=== PATIENT | female | born 1955 | race African-American/Black ===

== ENCOUNTER 2016-10-27 08:36 | Outpatient (CLI) | payer MEDICARE, MEDICAID ==
[~2016-10-27] VITALS: Ht 165.1 cm; Wt 83.6 kg
--- NOTE | ~2016-10-27 | HEMODYNAMI ---
PATIENT:ARLYN ROLLE MEDICAL RECORD: [id number] : 57 LOCATION:D.CAT ADMISSION DATE: 10/27/16 Generatedon:10/27/201611:32 Patient name: ARLYN ROLLE Patient #: [id number] SSN: : 1955 Date of study: 10/27/2016 Page: Of Hemodynamic Procedure Report Patient Data Patient Demographics Procedure consent was obtained First Name: ARLYN Gender: Female Last Name: SARIAH : 1955 [facility] Initial: REGGIE Age: 61 year(s) Patient #: [id number] Race: Black Additional ID: [id number] Contact details [address]: [address] [place] [address] State: [place] City: [place] Zip code: [address] Past Medical History Allergies Allergen Reaction Date Comments Reported Other allergy 10/27/2016 Peanuts Admission Admission Data Admission Date: 10/27/2016 Admission Time: 8:36 Lab Results Lab Result Date: 10/27/2016 Lab Result Time: 0:00 Biochemistry Name Units Result Min Max Creatinine mg/dl 6.5 --(----)-* 0.6 1.3 CBC Name Units Result Min Max Hemoglobin g/dl 10.6 *-(----)-- 13.5 17.5 Procedure Procedure Types Cath Procedure Diagnostic Procedure [facility] w/Coronaries PCI Procedure Coronary Stent Initial Miscellaneous Procedures Moderate Sedation up to 15 minutes Procedure Description Procedure Date Procedure Date: 10/27/2016 Procedure Start Time: 11:05 Procedure End Time: 11:21 Procedure Staff Name Function Deepika Mckeon RT Monitor Ian Babcock RN Nurse Taras Ashraf MD Performing Physician Miller Lincoln RT Scrub Procedure Data Cath Procedure Fluoroscopy Diagnostic fluoroscopy Total fluoroscopy Time: 2.5 time: 2.5 min min Diagnostic fluoroscopy Total fluoroscopy dose: 538 dose: 538 mGy mGy Contrast Material Contrast Material Type Amount (ml) Isovue 300 74 Entry Location Entry Primary Successful Side Size Upsize Upsize Entry Closure [place]ton ccessful Closure Location (Fr) 1 (Fr) 2 (Fr) Remarks Device Remarks Femoral Right 5 Fr 6 Fr Mechanical artery Short Compression Estimated blood loss: 10 ml Diagnostic catheters Device Type Used For End Catheter Placement Cordis 5Fr Pigtail LV Angiography Catheter (MP) Cordis 5Fr JL 4.0 Left Coronary Catheter (MP) Angiography Cordis 5Fr 3DRC Catheter (MP) Procedure Complications No complications Procedure Medications Medication Administration Route Dosage Oxygen NC 2 l/min Heparin Flush Bag added to field 2 bags (1000units/500ml NS) 0.9% NaCl I.V. 100 ml/hr Fentanyl I.V. 50 mcg Versed I.V. 1 mg Heparin Bolus I.V. 4000 units Integrilin (Bolus I.V. 7.3 ml 2mg/ml) Plavix P.O. 600 mg Hemodynamics Rest HGB: 10.6 (g/dl) Heart Rate: 53 (bpm) Snapshots Pre Cath Intra NCS Post Cath Vital Signs Time Heart Resp SPO2 NIBP (mmHg) Rhythm Pain Sedation Rate (ipm) (%) Status Level (bpm) 10:56:35 52 20 100 209/83(165) SB 0 (11) 10(A) , No pain 11:02:13 50 21 100 196/72(152) SB 0 (11) 10(A) , No pain 11:06:49 47 20 100 188/67(144) SB 0 (11) 9(A) , No pain 11:11:28 43 20 100 192/68(135) SB 0 (11) 9(A) , No pain 11:16:11 48 22 100 193/61(135) SB 0 (11) 9(A) , No pain 11:20:53 46 15 100 154/60(117) SB 0 (11) 9(A) , No pain Medications Time Medication Route Dose Verified Delivered Reason Notes Effectiveness by by 10:59:19 Oxygen NC 2 Ian Sosa Per physician l/min Sadiq Babcock RN RN 10:59:27 Heparin Flush added 2 Ian Sosa used for Bag to bags Sadiq Babcock shirt closer (1000units/500ml field RN NS) 10:59:37 0.9% NaCl I.V. 100 Ian Sosa Per physician ml/hr Sadiq Babcock RN RN 11:03:28 Fentanyl I.V. 50 Ian Sosa for sedation mcg Sadiq Babcock RN RN 11:03:40 Versed I.V. 1 mg Ian Sosa for sedation Sadiq Babcock RN RN 11:12:21 Integrilin I.V. 7.3 Ian Sosa for wasted (Bolus 2mg/ml) ml Sadiq Babcock RN antiplatelet 2.7mL of RN therapy integrilin bolus 11:12:21 Heparin Bolus I.V. 4000 Ian Sosa for units Sadiq Babcock RN anticoagulation RN 11:20:09 Plavix P.O. 600 Ian Soas for mg Sadiq Babcock RN antiplatelet RN therapy Procedure Log Time Note 10:35:17 Ian Babcock RN sent for patient. Start room use. 10:46:46 Informed consent obtained and on chart 10:47:18 Time tracking: Regular hours 10:47:22 Plan of Care:Hemodynamics will remain stable., Cardiac rhythm will remain stable., Comfort level will be maintained., Respiratory function will remain adequate., Patient/ family verbilizes understanding of procedure., Procedure tolerated without complication., Recovers from procedure without complications.. 10:48:23 Patient received from Pre/Post Procedure Room to CCL 2 Alert and oriented. Tansferred to table in Supine position. 10:48:24 Correct patient and procedure confirmed by team. 10:48:24 Warm blankets applied, and ibrahima hugger turned on for patient comfort. 10:48:26 ECG and BP/O2 sat monitors applied to patient. 10:54:13 Vital chart was started 10:54:50 Baseline sample Acquired. 10:55:45 Rhythm: sinus bradycardia 10:55:47 Full Disclosure recording started 10:55:58 H&P Date Dictated: 10/04/2016 Within 30 days and on chart., H&P Addendum completed by physician on day of procedure. (MUST COMPLETE FOR ALL OUTPATIENTS). 10:55:59 Pre-op teaching completed and patient verbalized understanding. 10:55:59 Pre-procedure instructions explained to patient. 10:56:00 Family in waiting room. 10:56:02 Patient NPO since Midnight. 10:56:27 Patient allergic to Other allergyPeanuts 10:59:19 Oxygen 2 l/min NC was administered by Ian Babcock RN; Per physician; 10:59:27 Heparin Flush Bag (1000units/500ml NS) 2 bags added to field was administered by Ian Babcock RN; used for procedure; 10:59:37 0.9% NaCl 100 ml/hr I.V. was administered by Ian Babcock RN; Per physician; 11:01:02 Is the patient allergic to Iodine/contrast media? No. 11:01:07 Is patient on blood thinner?No 11:01:08 Patient diabetic? Yes. 11:01:09 If diabetic: On Metformin? No 11:01:14 Previous problem with sedation/anesthesia? No ? 11:01:16 Snore? Yes 11:01:17 Sleep apnea? No 11:01:18 Deviated septum? No 11:01:20 Opens mouth fully? Yes 11:01:28 Sticks out tongue? No 11::35 Airway obstruction? No ? 11:01:37 Dentures? No ? 11:01:41 Pre procedure: right dorsailis pedis pulse 1+ Palpable, but thready & weak; easily obliterated 11:01:55 [place] Right Arm 11:01:58 Patient pain scale 0/10 ?. 11:02:04 IV patent on arrival in left hand with 0.9% NaCl at [facility]. 11:02:27 Lab Result : Hemoglobin 10.6 g/dl 11:02:27 Lab Result : Creatinine 6.5 mg/dl 11:02:35 Lab results completed and on chart. 11:02:37 Right groin area was prepped with chlora-prep and draped in sterile fashion 11:02:38 Alarms reviewed by R. N. 11:02:39 Sharps counted by scrub and verified by R.N. 11:02:41 Final Timeout: patient, procedure, and site verified with staff and physician. All members of the team are in agreement. 11:02:43 Right groin site verified by team. 11:02:45 Physical assessment completed. ASA score P 2 - A patient with mild systemic disease as per Taras Ashraf MD. 11:02:48 Sedation plan: IV Moderate Sedation Versed, Fentanyl 11:02:56 Use device set Femoral Dx 11:02:57 Bag Decanter opened to sterile field. 11:02:57 Acist Syringe opened to sterile field. 11:02:58 Terumo 5Fr [place] Sheath opened to sterile field. 11:02:58 Medline Cath Pack opened to sterile field. 11:02:59 St Fito 260cm J .035 wire opened to sterile field. 11:03:00 Acist Manifold opened to sterile field. 11:03:00 Acist Hand Control opened to sterile field. 11:03:01 Tegaderm 4 x 4 opened to sterile field. 11:03:01 Diagnostic Infinity 5Fr Multipack catheter opened to sterile field. 11:03:28 Fentanyl 50 mcg I.V. was administered by Ian Babcock RN; for sedation; 11:03:40 Versed 1 mg I.V. was administered by Ian Babcock RN; for sedation; 11:05:50 Procedure started. 11:05:53 Local anesthetic to right femoral artery with Lidocaine 2% by Taras Ashraf MD.INITIAL ACCESS ONLY 11:06:00 A 5 Fr sheath was inserted into the Right Femoral artery 11:06:10 Zero performed for pressure channel P1 11:06:14 Zero performed for pressure channel P1 11:06:17 Zero performed for pressure channel P1 11:06:31 A Cordis 5Fr Pigtail Catheter (MP) was advanced over the wire and used for LV Angiography. 11:07:17 LV gram done using HOANG 11:07:21 EF : 50 % 11:07:25 Injector settings: Ml/sec: 10, Volume: 20, 11:07:26 Catheter removed. 11:07:33 A Cordis 5Fr JL 4.0 Catheter (MP) was advanced over the wire and used for Left Coronary Angiography. 11:08:26 Postcron BasixCompak Inflation Kit opened to sterile field. 11:08:26 Armenta Whisper J 300cm 0.014 guide wire opened to sterile field. 11:08:27 Terumo 6Fr [place] Sheath opened to sterile field. 11:09:00 Catheter removed. 11:09:26 A Cordis 5Fr 3DRC Catheter (MP) was advanced over the wire and used for . 11:09:37 Catheter removed. 11:09:58 Medtronic Launcher 6Fr 3DRC SH guide catheter opened to sterile field. 11:10:08 Sheath upsized to a 6 Fr Short. 11:11:20 6 Fr 3DRC SH guide catheter was inserted over the wire 11:12:21 Integrilin (Bolus 2mg/ml) 7.3 ml I.V. was administered by Ian Babcock RN; for antiplatelet therapy; wasted 2.7mL of integrilin bolus 11:12:21 Heparin Bolus 4000 units I.V. was administered by Ian Babcock RN; for anticoagulation; 11:12:36 Whisper wire advanced. 11:13:35 Inflation Number: 1 A Medtronic Resolute 3.5 X 12 stent was prepped and advanced across the Prox RCA. The stent was deployed at 24 LAURA for 0:18 (min:sec). 11:14:12 Inflation number: 2 The stent balloon was then re-inflated across the Prox RCA to 23 LAURA for 0:11 (min:sec). 11:14:36 Wire removed. 11:14:36 Stent catheter was removed intact over wire. 11:14:37 Guide catheter removed. 11:14:46 Sheath removed intact; hemostasis achieved with Mechanical Compression to the Right Femoral artery. 11:14:48 Procedure ended.(Physican Out) 11:17:03 Cordis 6Fr Exoseal opened to sterile field. 11:17:09 Fluoroscopy time 02.50 minutes. 11:17:13 Fluoroscopy dose: 538 mGy 11:17:13 Flurop Dose total: 538 11:18:32 Contrast amount:Isovue 300 74ml. 11:18:34 Sharps counted by scrub and verified by R.N. 11:19:28 Insertion/operative site no bleeding no hematoma. 11:19:32 Post-op/insertion site Right Femoral artery dressed using a 4 x 4 and Tegaderm. 11:19:35 Post right femoral artery:stable, clean and dry 11:19:37 Post Procedure Pulses reassessed and unchanged 11:19:40 Post-procedure physical assessment completed. ASA score P 2 - A patient with mild systemic disease as per Taras Ashraf MD. 11:19:42 Post procedure rhythm: unchanged. 11:19:43 Estimated blood loss: 10 ml 11:19:45 Patient needs reinforcement of post procedure teaching. 11:19:45 Post procedure instruction explained to patient.Patient verbalizes understanding. 11:19:59 Procedure type changed to Cath procedure, Diagnostic procedure, LHC, LHC w/Coronaries, PCI procedure, Coronary Stent Initial, Miscellaneous Procedures, Moderate Sedation up to 15 minutes 11:20:05 Procedure Complication : No complications 11:20:07 See physician's report for complete and final results. 11:20:09 Plavix 600 mg P.O. was administered by Ian Babcock RN; for antiplatelet therapy; 11:20:11 Post right femoral artery:bleeding 11:20:16 Femstop placed over the right femoral artery at 170 mmHg. Hemostasis achieved. 11:20:56 Procedure and supply charges have been captured, reviewed, submitted and are correct. 11:20:58 Vital chart was stopped 11:21:02 Report given to Pre/Post Procedure Room. 11:21:08 Patient transfered to Pre/Post Procedure Room with Stretcher. 11:21:10 Procedure ended. 11:21:10 Full Disclosure recording stopped 11:21:23 End room use (Document Last) 11:32:21 Late entry revised: RFA bleeding, Femstop placed RFA @170mmHG. ScountsRT(R) Intervention Summary Intervention Notes Time ActionType Lesion and Equipment Action# Pressure Duration Attributes Used 11:13:35 Place stent Prox RCA Medtronic 1 24 00:18 Resolute 3.5 X 12 stent 11:14:12 Reinflate Prox RCA Medtronic 2 23 00:11 stent Resolute balloon 3.5 X 12 stent Device Usage Item Name Manufacture Quantity Catalog Hospital Part Current Minimal Lot# / Number Charge Number Stock Stock Serial# Code Acist Acist 1 [id number] [id number] 386264 562603 20 Syringe [employer] Inc Bag Microtek 1 2002S 734255 07373 436452 5 [employer] Medline Cardinal 1 [id number] 621587 96346 880057 5 Cath Pack Health Terumo 5Fr Terumo 1 [id number] 029315 418384 387259 [address] [place] [address] F[address] St Fito 1 699076 422785 870950 663694 30 260cm J .035 wire Acist Hand Acist 1 11788 683542 195425 253584 5 Control [employer] Inc Acist Acist 1 41899 800297 828995 691937 5 TIMPIK [employer] Diagnostic Cardinal 1 [id number] 332956 98616 396693 30 Infinity Health 5Fr Multipack catheter Tegaderm 4 3M 1 1626W 113677 565294 020833 5 x 4 Cordis 5Fr Cardinal 1 [id number] 5 Pigtail Health Catheter (MP) Cordis 5Fr Cardinal 1 149659 5 JL 4.0 Health Catheter (MP) Armenta Armenta 1 [id number] 772851 397612 191280 5 Whisper J Vascular 300cm 0.014 guide wire [facility] 1 [id number] 503711 859185 767875 15 [employer] Medical Inflation Kit Terumo 6Fr Terumo 1 [id number] 108520 282877 144975 40 [place] Sheath Cordis 5Fr Cardinal 1 566126 5 3D Health Catheter (MP) Medtronic Medtronic 1 [id number] 831280 265480 320993 1 Launcher 6Fr 3DRC guide catheter Medtronic Medtronic 1 [id number] 277433 990452 7 [id number] Resolute 3.5 X 12 stent Cordis 6Fr Cardinal 1 EX600 656572 157839 543082 [address] [facility] Signature Audit [place] Stage Time Signature Unsigned Intra-Procedure 10/27/2016 Deepika Poe Counts 11:21:46 AM Counts RT(R) RT(R) 10/27/2016 11:29:45 AM Intra-Procedure 10/27/2016 Deepika 11:32:48 AM Counts RT(R) Signatures Monitor : Deepika Signature : Counts RT Date : Time : [address] [address]
[~2016-10-27 08:36] MED LIST: ASPIRIN325 MG PO; BACTROBAN NASAL1 GM NS; CLARITIN 10 MG10 MG GT; ISOSORBIDE DINI20 MG PO; MUCINEX600 MG PO; NITROSTAT0.4 MG SL; NORCO 5/325 TAB1 TA1 PO; NORVASC10 MG PO; PHENERGAN25 MG RC; PHOSLO667 MG PO; RENAGEL800 MG PO; SALINE FLUSH10 ML IV; TESSALON PERLE100 MG PO; TRANDATE300 MG PO; ZOCOR20 MG PO
[2016-10-27] MEDS ORDERED: LISINOPRIL10 MG PO (09:24)
[2016-10-27] MEDS ORDERED: ISOSORBIDE MONO20 MG PO (09:26)
[2016-10-27] MEDS ORDERED: SENSIPAR30 MG PO (09:30)
[2016-10-27] MEDS ORDERED: ASPIRIN325 MG PO (09:30)
[2016-10-27 09:33] VITALS: BP 195/54; Ht 165.1 cm; Wt 83.6 kg
[2016-10-27 09:48] LABS: BASOPHILS 0.2 % (0.0-2.0); HEMATOCRIT 33.9 % (36.0-48.0); HEMOGLOBIN 10.6 g/dL (12-16); IMMATURE GRANULOCYTES 0.2 % (0-5); LYMPHOCYTES 22.4 % (15-50); MCH 30.1 pg (26.0-34.0); MCHC 31.3 g/dL (31.0-37.0); MCV 96.3 fL (80.0-100.0); MEAN PLATELET VOLUME 12.2 fL (7.4-10.4); MONOCYTES 7.2 % (2-11); RBC 3.52 10x6/uL (4.00-5.40); RDW 16.6 % (11.5-14.5); WBC 5.5 10x3/uL (4.8-10.8)
[2016-10-27 09:52] LABS: PLATELET COUNT 107 10x3/uL (130-400)
[2016-10-27 09:59] LABS: ANION GAP 13.7 mmol/L (8-16); CALCIUM 8.3 mg/dL (8.5-10.1); CARBON DIOXIDE 24.7 mmol/L (21.0-32.0); CREATININE - SERUM 6.5 mg/dL (0.6-1.3); POTASSIUM - SERUM 3.4 mmol/L (3.5-5.1)
[2016-10-27] MEDS ORDERED: PLAVIX75 MG PO (11:30)
--- NOTE | 2016-10-27 11:46 | NUR ---
HR 44 BP 183/64 CHEST PAIN DENIED. 6 FR EXOSEAL R/GROIN WITH FEMSTOP IN PLACE INFLATED TO 169 NO BLEEDING NO HEMATOMA NOTED. WILL MONITOR
--- NOTE | 2016-10-27 12:00 | NUR ---
1200 PATIENT NAUSEATED AND VOMITING CLEAR BILE. ORDERS RECIEVED WITH ZOFRAN 4 MG GIVEN IV. FEMSTOP REMAINS IN PLACE WITH NO BLEEDING NO HEMATOMA NOTED.
--- NOTE | 2016-10-27 12:30 | NUR ---
NAUSEA DENIED AT THIS TIME. FEMSTOP REMAINS TO R/GROIN CDI NO BLEEDING NO HEMATOMA NOTED. VSS
--- NOTE | 2016-10-27 14:02 | NUR ---
FEMSTOP REMOVED WITH NO BLEEDING NOTED. CHEST PAIN IS DENIED. SANWICH AND SODA AT BEDSIDE NAUSEA DENIED.VSS
--- NOTE | 2016-10-27 14:30 | NUR ---
1430 BLEEDING NOTED TO R/GROIN FEMSTOP STILL IN PLACE WITH NO PRESSURE. GAUZE IS SATURATED. NOTIFIED RASHEED WITH FEMSTOP REAPPLIED. PRESSURE AT 105 WILL MONITOR VSS
--- NOTE | 2016-10-27 15:04 | NUR ---
FEMSTOP REMAINS IN PLACE WITH NO ACTIVE BLEEDING OR HEMATOMA AT THIS TIME WILL MONITOR
--- NOTE | 2016-10-27 15:20 | NUR ---
RASHEED AT BEDSIDE WITH FEMSTOP REMOVED NO BLEEDING AT SITE NO HEMATOMA WILL MONITOR
--- NOTE | 2016-10-27 15:59 | NUR ---
R/GROIN REMAINS CDI NO BLEEDING NO HEMATOMA NOTED. VSS WITH CHEST PAIN DENIED
--- NOTE | 2016-10-27 16:53 | NUR ---
PIV REMOVED FROM LEFT ARM WITH DRESSING APPLIED R/GROIN REMAINS CDI NO BLEEDING NO HEMATOMA NOTED. PATIENT DENIED CHEST PAIN UP TO GET DRESSED FOR DISCHARGE HOME
--- NOTE | 2016-10-27 17:03 | NUR ---
VERBAL AND WRITTEN DISCHARGE GONE OVER WITH FAMILY AND PATIENT R/GROIN CDI NO BLEEDING NO HEMATOMA NOTED CHEST PAIN IS DENIED. LEFT VIA WC TO PARKING FOR FAMILY TRANSPORT HOME
--- NOTE | 2016-11-05 10:19 | OP ---
PATIENT NAME: ARLYN ROLLE MEDICAL RECORD: [id number] :57 LOCATION:D.CAT ADMISSION DATE: SURGEON: GARRY BASS MD DATE OF OPERATION: 10/27/2016 PROCEDURES: 1. PTCA stent, RCA. 2. Left heart catheterization. 3. Selective coronary angiography. 4. Left ventriculogram. INDICATIONS: Angina and coronary artery disease. PROCEDURE IN DETAIL: After informed consent was obtained and after a detailed explanation of the risks, benefits as well as alternative therapies, the patient elected to proceed with angiogram and angioplasty. The right femoral area is prepped and draped in normal sterile fashion. The right femoral artery was cannulated via modified Seldinger technique with placement of 6-Malay sheath. All catheters exchanged through this sheath. FINDINGS: The left ventriculogram was performed in standard 30-degree HOANG view, reveals good cardiac wall motion throughout all segments. Overall ejection fraction estimated 60%. SELECTIVE CORONARY ANGIOGRAPHY: 1. Left main showed no significant angiographic disease. 2. Left anterior descending has previously placed stents. There is 80% in-stent restenosis in the mid vessel. 3. Left circumflex shows moderate irregularities, but no flow-limiting stenosis. 4. Right coronary has ostial damping with stenosis greater than 80%. PTCA STENT OF THE RCA: The stent used is a 3.5 x 12 mm Resolute taken to 23 atmospheres. Result was 0% residual stenosis. OVERALL IMPRESSION: Successful percutaneous transluminal coronary angioplasty stent of the right coronary artery going from greater than 80% initial stenosis to 0% residual. PLAN: PTCA stent of the LAD in the near future. TRANSINT:[id number] Voice Confirmation ID: [id number] DOCUMENT ID: [id number] GARRY BASS MD at 1019 CC: [id number] DICTATION DATE: 10/27/16 1120 MEDICAL DEVICE ENGINEER: 10/27/16 1209 DEP CLI 10/27/[address] [address]
== END 2016-10-27 17:14 | disposition home or self-care (01) ==
LOC: D.CATH 08:36
PROVIDERS: Internal Medicine Interventional Cardiology
DX: I25.119 Atherosclerotic heart disease of native coronary artery with unspecified angina pectoris (principal)
CPT/HCPCS: 93458; C9600

== ENCOUNTER 2016-11-03 08:52 | Outpatient (CLI) | payer MEDICARE, MEDICAID ==
[~2016-11-03] VITALS: Ht 165.1 cm; Wt 85.0 kg
--- NOTE | ~2016-11-03 | HEMODYNAMI ---
PATIENT:ARLYN ROLLE MEDICAL RECORD: [id number] : 57 LOCATION:D.CAT ADMISSION DATE: 11/03/16 Generatedon:11/03/201611:11 Patient name: ARLYN ROLLE Patient #: [id number] SSN: : 1955 Date of study: 11/03/2016 Page: Of Hemodynamic Procedure Report Patient Data Patient Demographics Procedure consent was obtained First Name: ARLYN Gender: Female Last Name: SARIAH : 1955 [facility] Initial: REGGIE Age: 61 year(s) Patient #: [id number] Race: Black Additional ID: [id number] Contact details [address]: [address] [place] [address] State: [place] City: [place] Zip code: [address] Past Medical History Allergies Allergen Reaction Date Comments Reported Other allergy 10/27/2016 Peanuts Admission Admission Data Admission Date: 11/03/2016 Admission Time: 8:52 Lab Results Lab Result Date: 11/03/2016 Lab Result Time: 0:00 Biochemistry Name Units Result Min Max Creatinine mg/dl 7.6 --(----)-* 0.6 1.3 CBC Name Units Result Min Max Hemoglobin g/dl 11.4 *-(----)-- 13.5 17.5 Procedure Procedure Types Cath Procedure Diagnostic Procedure [facility] w/Coronaries PCI Procedure Coronary Stent Initial Miscellaneous Procedures Moderate Sedation up to 15 minutes Procedure Description Procedure Date Procedure Date: 11/03/2016 Procedure Start Time: 10:59 Procedure End Time: 11:10 Procedure Staff Name Function Taras Ashraf MD Performing Physician Miller Lincoln RT Scrub Ian Babcock RN Nurse Deepika Mckeon RT Monitor Procedure Data Cath Procedure Fluoroscopy Diagnostic fluoroscopy Total fluoroscopy Time: 1.2 time: 1.2 min min Diagnostic fluoroscopy Total fluoroscopy dose: dose: 76.42 mGy 76.42 mGy Contrast Material Contrast Material Type Amount (ml) Isovue 300 37 Entry Location Entry Primary Successful Side Size Upsize Upsize Entry Closure Succes sful Closure Location (Fr) 1 (Fr) 2 (Fr) Remarks Device Remarks Femoral Left 6 Fr Exoseal artery Short Estimated blood loss: 10 ml Procedure Complications No complications Procedure Medications Medication Administration Route Dosage Oxygen NC 2 l/min Heparin Flush Bag added to field 2 bags (1000units/500ml NS) 0.9% NaCl I.V. 100 ml/hr Fentanyl I.V. 50 mcg Versed I.V. 1 mg Heparin Bolus I.V. 4000 units Hemodynamics Rest HGB: 11.4 (g/dl) Heart Rate: 71 (bpm) Snapshots Pre Cath Intra NCS Post Cath Vital Signs Time Heart Resp SPO2 NIBP (mmHg) Rhythm Pain Sedation Rate (ipm) (%) Status Level (bpm) 10:48:42 60 21 95 205/83(139) NSR 0 (11) 10(A) , No pain 10:53:25 55 19 96 187/72(146) NSR 0 (11) 10(A) , No pain 10:58:06 53 19 95 190/71(144) NSR 0 (11) 10(A) , No pain 11:03:49 49 17 97 186/72(134) NSR 0 (11) 9(A) , No pain 11:09:32 49 17 98 171/66(133) NSR 0 (11) 9(A) , No pain Medications Time Medication Route Dose Verified Delivered Reason Notes Effectiveness by by 10:48:27 Oxygen NC 2 Ian Ian Per physician l/min Sadiq Babcock RN RN 10:48:37 Heparin Flush added 2 Ian Sosa used for Bag to bags Sadiq Babcock RN procedure (1000units/500ml field RN NS) 10:48:49 0.9% NaCl I.V. 100 Ian Ian Per physician ml/hr Sadiq Babcock RN RN 10:58:09 Fentanyl I.V. 50 Ian Ian for sedation mcg Sadiq Babcock RN RN 10:58:17 Versed I.V. 1 mg Ian Ian for sedation Sadiq Babcock RN RN 11:00:45 Heparin Bolus I.V. 4000 Ian Beardy for units Sadiq Babcock RN anticoagulation beauty director Log Time Note 10:20:33 Ian Babcock RN sent for patient. Start room use. 10:32:34 Time tracking: Regular hours 10:32:38 Plan of Care:Hemodynamics will remain stable., Cardiac rhythm will remain stable., Comfort level will be maintained., Respiratory function will remain adequate., Patient/ family verbilizes understanding of procedure., Procedure tolerated without complication., Recovers from procedure without complications.. 10:36:34 Patient received from Pre/Post Procedure Room to [facility] 3 Alert and oriented. Tansferred to table in Supine position. 10:36:35 Warm blankets applied, and ibrahima hugger turned on for patient comfort. 10:36:36 Correct patient and procedure confirmed by team. 10:36:37 Signed procedure consent form obtained from patient. 10:36:37 ECG and BP/O2 sat monitors applied to patient. 10:36:38 Full Disclosure recording started 10:43:11 Vital chart was started 10:46:02 Baseline sample Acquired. 10:46:04 Rhythm: sinus rhythm 10:46:09 H&P Date Dictated: 11/03/2016 New H&P dictated by physician.. 10:46:10 Pre-procedure instructions explained to patient. 10:46:10 Pre-op teaching completed and patient verbalized understanding. 10:46:11 Family in waiting room. 10:46:13 Patient NPO since Midnight. 10:46:19 Is the patient allergic to Iodine/contrast media? No. 10:46:21 Is patient on blood thinner?Yes 10:46:23 ACC The patient was administered the following blood thiners within the last 24 hours: ACCPlavix 10:46:56 Vital chart was stopped 10:46:57 Vital chart was started 10:47:49 Patient diabetic? Yes. 10:47:50 If diabetic: On Metformin? No 10:47:55 Previous problem with sedation/anesthesia? No ? 10:47:56 Snore? Yes 10:47:57 Sleep apnea? No 10:47:58 Deviated septum? No 10:47:59 Opens mouth fully? Yes 10:47:59 Sticks out tongue? Yes 10:48:01 Airway obstruction? No ? 10:48:03 Dentures? No ? 10:48:16 Pre procedure: right dorsailis pedis pulse 0-Absent 10:48:27 Oxygen 2 l/min NC was administered by Ian Babcock RN; Per physician; 10:48:35 AKA On Left. 10:48:37 Heparin Flush Bag (1000units/500ml NS) 2 bags added to field was administered by Ian Babcock RN; used for procedure; 10:48:42 Patient pain scale 0/10 ?. 10:48:49 0.9% NaCl 100 ml/hr I.V. was administered by Ian Babcock RN; Per physician; 10:48:52 IV patent on arrival in left antecubital with 0.9% NaCl at [facility]. 10:49:13 Lab Result : Creatinine 7.6 mg/dl 10:49:13 Lab Result : Hemoglobin 11.4 g/dl 10:49:17 Lab results completed and on chart. 10:49:20 Left groin area was prepped with chlora-prep and draped in sterile fashion 10:49:21 Alarms reviewed by R. N. 10:49:21 Sharps counted by scrub and verified by R.N. 10:49:24 Use device set Femoral PCI 10:49:25 Acist Syringe opened to sterile field. 10:49:26 Acist Hand Control opened to sterile field. 10:49:26 Bag Decanter opened to sterile field. 10:49:27 Medline Cath Pack opened to sterile field. 10:49:27 Terumo 6Fr Duson Sheath opened to sterile field. 10:49:28 St Fito 260cm J .035 wire opened to sterile field. 10:49:28 Merit BasixCompak Inflation Kit opened to sterile field. 10:49:29 Acist Manifold opened to sterile field. 10:49:29 Tegaderm 4 x 4 opened to sterile field. 10:49:43 Armenta Whisper J 300cm 0.014 guide wire opened to sterile field. 10:53:54 Physician paged 10:54:06 Baseline sample Acquired. 10:57:09 Final Timeout: patient, procedure, and site verified with staff and physician. All members of the team are in agreement. 10:57:11 Left groin site verified by team. 10:57:14 Physical assessment completed. ASA score P 2 - A patient with mild systemic disease as per Taras Ashraf MD. 10:57:17 Sedation plan: IV Moderate Sedation Versed, Fentanyl 10:58:09 Fentanyl 50 mcg I.V. was administered by Ian Babcock RN; for sedation; 10:58:17 Versed 1 mg I.V. was administered by Ian Babcock RN; for sedation; 10:58:36 Zero performed for pressure channel P1 10:59:29 Procedure started. 10:59:33 Local anesthetic to left femerol artery with Lidocaine 2% by Taras Ashraf MD.INITIAL ACCESS ONLY 11:00:23 A 6 Fr Short sheath was inserted into the Left Femoral artery 11:00:30 6 Fr XBLAD 3.5 guide catheter was inserted over the wire 11:00:45 Heparin Bolus 4000 units I.V. was administered by Ian Babcock RN; for anticoagulation; 11:02:26 Whisper wire advanced. 11:04:34 Inflation Number: 1 A Medtronic Resolute 3.5 X 26 stent was prepped and advanced across the Prox LAD. The stent was deployed at 21 LAURA for 0:14 (min:sec). 11:04:46 Stent catheter was removed intact over wire. 11:04:47 Wire removed. 11:04:47 Guide catheter removed. 11:04:54 Sheath removed intact; hemostasis achieved with Exoseal to the Left Femoral artery. 11:05:00 Procedure ended.(Physican Out) 11:05:11 Fluoroscopy time 01.20 minutes. 11:05:18 Flurop Dose total: 76.42 11:05:18 Fluoroscopy dose: 76.42 mGy 11:05:22 Contrast amount:Isovue 300 37ml. 11:05:23 Sharps counted by scrub and verified by R.N. 11:05:24 Insertion/operative site no bleeding no hematoma. 11:05:26 Post-op/insertion site Left Femoral artery dressed using a 4 x 4 and Tegaderm. 11:05:31 Post left femerol artery:stable, clean and dry 11:05:33 Post Procedure Pulses reassessed and unchanged 11:05:35 Post-procedure physical assessment completed. ASA score P 2 - A patient with mild systemic disease as per Taras Ashraf MD. 11:05:43 Post procedure rhythm: unchanged. 11:05:45 Estimated blood loss: 10 ml 11:05:46 Post procedure instruction explained to patient.Patient verbalizes understanding. 11:05:47 Patient needs reinforcement of post procedure teaching. 11:05:56 Procedure type changed to Cath procedure, Diagnostic procedure, LHC, LHC w/Coronaries, PCI procedure, Coronary Stent Initial, Miscellaneous Procedures, Moderate Sedation up to 15 minutes 11:06:02 Procedure Complication : No complications 11:06:20 Cordis 6Fr Exoseal opened to sterile field. 11:06:42 Cordis 6FR XBLAD 3.5 guide catheter opened to sterile field. 11:07:08 Procedure and supply charges have been captured, reviewed, submitted and are correct. 11:07:09 See physician's report for complete and final results. 11:10:40 Report given to Pre/Post Procedure Room. 11:10:43 Patient transfered to Pre/Post Procedure Room with Stretcher. 11:10:50 Procedure ended. 11:10:50 Full Disclosure recording stopped 11:10:56 End room use (Document Last) 11:11:26 Vital chart was stopped Intervention Summary Intervention Notes Time ActionType Lesion and Equipment Action# Pressure Duration Attributes Used 11:04:34 Place stent Prox LAD Medtronic 1 21 00:15 Resolute 3.5 X 26 stent Device Usage Item Name Manufacture Quantity Catalog Hospital Part Current Minimal Lot# / Number Charge Number Stock Stock Serial# Code Acist Acist 1 95060 032545 501002 453290 20 Syringe Medical Systems Inc Acist Hand Acist 1 71097 951155 213597 746522 5 Control Medical Systems Inc Bag Microtek 1 2002S 183663 50590 064707 5 DecMatchbin Medical Inc. Medline Cardinal 1 [id number] 572286 93126 754272 5 Frograms Terumo 6Fr Terumo 1 [id number] 668262 837218 359662 [address] Fito 1 296753 425144 391276 820345 30 260cm J .035 wire Merit Merit 1 [id number] 251290 995311 989429 15 BasixCompak Medical Inflation Kit Acist Acist 1 48318 858928 066504 695923 5 Manifold Medical Systems Inc Tegaderm 4 3M 1 1626W 899730 091353 804476 5 x 4 Armenta Armenta 1 [id number] 682758 362417 075859 5 Whisper J Vascular 300cm 0.014 guide wire Medtronic Medtronic 1 [id number] 344510 689462 2 [id number] Resolute 3.5 X 26 stent Cordis 6Fr Cardinal 1 EX600 012695 270446 299397 10 Exoseal Health Cordis 6FR Cardinal 1 [id number] 814833 555500 930797 10 XBLAD 3.5 Health guide catheter Signature Audit [place] Stage Time Signature Unsigned Intra-Procedure 11/03/2016 Deepika 11:11:23 AM Counts RT(R) Signatures Monitor : Deepika Signature : Counts RT Date : Time : [place] [address] [place] [address]
[~2016-11-03 08:52] MED LIST changes: +ISOSORBIDE MONO20 MG PO; +LISINOPRIL10 MG PO; +PLAVIX75 MG PO; +SENSIPAR30 MG PO
[2016-11-03 09:07] VITALS: BP 188/59; Ht 165.1 cm; Wt 85.0 kg
[2016-11-03 09:49] LABS: BASOPHILS 0.3 % (0.0-2.0); EOSINOPHILS 3.4 % (0-7); HEMATOCRIT 35.3 % (36.0-48.0); HEMOGLOBIN 11.4 g/dL (12-16); IMMATURE GRANULOCYTES 0.1 % (0-5); MCHC 32.3 g/dL (31.0-37.0); MCV 95.9 fL (80.0-100.0); MEAN PLATELET VOLUME 12.6 fL (7.4-10.4); MONOCYTES 8.5 % (2-11); NEUTROPHILS 65.7 % (40-80); PLATELET COUNT 121 10x3/uL (130-400); RBC 3.68 10x6/uL (4.00-5.40); RDW 16.2 % (11.5-14.5); WBC 6.7 10x3/uL (4.8-10.8)
[2016-11-03 10:11] LABS: ANION GAP 13.2 mmol/L (8-16); CALCIUM 9.9 mg/dL (8.5-10.1); CARBON DIOXIDE 30.2 mmol/L (21.0-32.0); CREATININE - SERUM 7.6 mg/dL (0.6-1.3); POTASSIUM - SERUM 4.4 mmol/L (3.5-5.1)
--- NOTE | 2016-11-03 11:40 | NUR ---
RESTING IN BED QUIETLY. 2L NC, NO RESP DISTRESS NOTED. VSS. NO C/O CHEST PAIN OR NAUSEA. LEFT GROIN EXOSEAL CDI, NO BLEEDING OR HEMATOMA NOTED. INSTRUCTED PT TO KEEP HEAD FLAT ON PILLOW AND LEFT LEG STRAIGHT.
--- NOTE | 2016-11-03 12:09 | NUR ---
LEFT GROIN EXOSEAL CDI, NO BLEEDING OR HEMATOMA NOTED. 2L NC, NO RESP DISTRESS NOTED. VSS. NO C/O CHEST PAIN OR NAUSEA. CALL LIGHT WITHIN REACH.
--- NOTE | 2016-11-03 12:26 | NUR ---
1225 PT RESTING WITH EYES CLOSED, AWAKENS TO VERBAL STIMULI. DENIES ANY C/O CHEST PAIN OR NAUSEA. RR IS EVEN AND UNLABORED ON O2 AT 2 LPM VIA NC. DRESSING TO LEFT GROIN IS CDI, NO BLEEDING OR HEMATOMA NOTED. CALL LIGHT IN REACH. WILL CONTINUE TO MONITOR.
--- NOTE | 2016-11-03 12:55 | NUR ---
JUICE AND SANDWICH TRAY GIVEN. NO C/O NAUSEA. VSS. LEFT GROIN EXOSEAL CDI, NO BLEEDING OR HEMATOMA NOTED. CALL LIGHT WITHIN REACH.
--- NOTE | 2016-11-03 13:55 | NUR ---
QUIETLY RESTING. 2L NC, NO RESP DISTRES NOTED. VSS. LEFT GROIN EXOSEAL CDI, NO BLEEDING OR HEMATOMA NOTED. WILL CONTINUE TO MONITOR.
--- NOTE | 2016-11-03 14:42 | NUR ---
HOB ELEVATED 30 DEGREES. LEFT GROIN CDI.
--- NOTE | 2016-11-03 14:55 | NUR ---
LEFT AC PIV D/C'D WITH CATHETER INTACT, BAND AID TO SITE. UP TO BEDSIDE TO GET DRESSED.
--- NOTE | 2016-11-03 15:07 | NUR ---
UP TO RESTROOM TO VOID.
--- NOTE | 2016-11-03 15:16 | NUR ---
DISCHARGE INSTRUCTIONS GIVEN, VERBALIZED UNDERSTANDING. TAKEN OUT VIA WHEELCHAIR BY CATH SHAREPOINT CONSULTANT. LEFT FACILITY WITH FAMILY MEMBER AND ALL PERSONAL BELONGINGS.
--- NOTE | 2016-11-05 10:19 | OP ---
PATIENT NAME: ARLYN ROLLE MEDICAL RECORD: [id number] :57 LOCATION:D.CAT ADMISSION DATE: SURGEON: GARRY BASS MD DATE OF OPERATION: 11/03/2016 PROCEDURES: 1. PTCA stent, LAD. 2. Selective coronary angiography. INDICATIONS: Angina and coronary artery disease. PROCEDURE IN DETAIL: After informed consent was obtained and after detailed explanation of risks, benefits as well as alternative therapies, the patient elected to proceed with angiogram and angioplasty. The right femoral area was prepped and draped in normal sterile fashion. The right femoral artery was cannulated via modified Seldinger technique with placement of 6-Slovak sheath. All catheters exchanged through this sheath. FINDINGS: The left anterior descending has 70%-75% stenosis in the mid vessel. This was addressed with a 3.0 x 26 mm Resolute stent. Result was 0% residual stenosis. OVERALL IMPRESSION: Successful percutaneous transluminal coronary angioplasty stent of the LAD going from 70%-75% initial stenosis to 0% residual. TRANSINT:[id number] Voice Confirmation ID: [id number] DOCUMENT ID: [id number] GARRY BASS MD at 1019 CC: [id number] DICTATION DATE: 11/03/16 1110 OPTICIAN: 11/03/16 1818 [facility] CLI 11/03/16 [place] [id number] [place] [address]
--- NOTE | 2016-11-05 10:19 | HP ---
PATIENT: ARLYN BATEMAN MEDICAL RECORD: [id number] ACCOUNT: [id number] LOCATION:RENEA : 57 ADMISSION DATE: 11/03/16 HISTORY AND PHYSICAL EXAMINATION DIAGNOSES: 1. Angina. 2. Coronary artery disease. 3. Recent percutaneous transluminal coronary angioplasty stent of the right coronary artery with concomitant disease of the left anterior descending. 4. Hypertension. 5. Hyperlipidemia. HISTORY OF PRESENT ILLNESS: Mrs. Bateman presents with unstable angina, found to have 2-vessel coronary artery disease of the LAD and RCA, underwent successful PTCA stent of the ostial RCA. She is now brought back for PTCA stent of the LAD in a staged fashion. PHYSICAL EXAMINATION: GENERAL APPEARANCE: Well-nourished, well-developed, appears stated age. Level of distress, comfortable. PSYCHIATRIC: Mental status, alert, normal affect. Orientation, oriented to time, place and person. EYES: Lids and conjunctiva, noninjected. No discharge, no pallor. ENT: Lips, teeth, gums, normal dentition. Oropharynx, no cyanosis, no pallor. NECK: Carotid arteries, bilateral normal upstroke, no bruits, no thrills. JUGULAR VEINS: No jugular venous pressure or distention. CERVICAL LYMPH NODES: Nontender, nonenlarged. THYROID: Not enlarged. Nontender. No nodules. LUNGS: Respiratory effort, unlabored. CHEST: Normal curvature. No thoracic deformity. No chest wall tenderness. Percussion, resonant. Auscultation, clear. No wheezes, no rales, no rhonchi. CARDIOVASCULAR: Precordial exam, nondisplaced. No heaves or pericardial thrills. Rate and rhythm, regular. Heart sounds, normal S1, normal S2. No S3, no gallop, no rub. Systolic murmur, not heard. Diastolic murmur, not heard. EXTREMITIES: No cyanosis, no edema. Peripheral pulses, full and equal in all extremities, except as noted. No bruits appreciated. ABDOMEN: Soft, nondistended. Normal aorta. No bruit. Nontender. No masses. Liver, nontender, no hepatomegaly. Spleen, nontender, no splenomegaly. MUSCULOSKELETAL: No joint tenderness. No joint swelling. No erythema. NEUROLOGICAL: Normal gait, normal strength, normal tone. SKIN: Warm and dry. REVIEW OF SYSTEMS: The patient reports easy bruising but reports no swollen glands. The patient reports no fever, no night sweats, no significant weight gain, no significant weight loss. No significant exercise tolerance. The patient reports no dry eyes, no irritation, no vision change. Patient reports no difficulty hearing and no ear pain. Patient reports no frequent nose bleeds or nose and sinus problems. Patient reports on arm pain on exertion. No shortness of breath while lying down. No history of heart murmur. Patient reports no cough, no wheezing or coughing up blood. Patient reports no abdominal pain, no vomiting. Normal appetite. No diarrhea and not vomiting blood. No nausea and no constipation. Patient reports no incontinence. No difficulty urinating. No hematuria. No increased frequency. Patient reports no muscle aches. No weakness, no arthralgias, no back pain. No swelling of the HISTORY AND PHYSICAL [id number] ARLYN BATEMAN extremities. Patient reports no abnormal mole, no jaundice, no rashes. Reports no loss of consciousness. No weakness and no numbness. No seizures, dizziness, or headaches. The patient reports no depression, no sleep disturbance, feeling safe in a relationship and no alcohol abuse. Patient reports on fatigue. Reports no runny nose or sinus pressure. No itching, no hives, and no frequent sneezing. OVERALL IMPRESSION: Anginal symptomatology with significant disease of the left anterior descending. We will proceed with percutaneous transluminal coronary angioplasty stent of the left anterior descending. TRANSINT:[id number] Voice Confirmation ID: [id number] DOCUMENT ID: [id number] GARRY BASS MD at 1019 CC: [id number] DICTATION DATE: 11/03/16923 PARISH VISITOR: 11/03/16 1236 [facility] CLI 11/03/16 [id number] [place] [id number]
== END 2016-11-03 15:16 | disposition home or self-care (01) ==
LOC: D.CATH 08:52
PROVIDERS: Internal Medicine Interventional Cardiology
DX: I25.119 Atherosclerotic heart disease of native coronary artery with unspecified angina pectoris (principal); Z95.5 Presence of coronary angioplasty implant and graft; I10 Essential (primary) hypertension; E78.5 Hyperlipidemia, unspecified

== ENCOUNTER 2018-09-06 09:16 | Outpatient (CLI) | payer MEDICARE, MEDICAID ==
[~2018-09-06] VITALS: Ht 165.1 cm; Wt 81.8 kg
--- NOTE | ~2018-09-06 | HEMODYNAMI ---
PATIENT:ARLYN ROLLE MEDICAL RECORD: [id number] : 57 LOCATION:D.CAT ADMISSION DATE: 09/06/18 Generatedon:09/06/201812:30 Patient name: ARLYN ROLLE Patient #: [id number] SSN: : 1955 Date of study: 09/06/2018 Page: Of Hemodynamic Procedure Report Patient Data Patient Demographics Procedure consent was obtained First Name: ARLYN Gender: Female Last Name: SARIAH : 1955 Middle Initial: REGGIE Age: 63 year(s) Patient #: [id number] Race: Black Additional ID: [id number] Contact details Address: [address] [place] [address] State: [place] City: [place] Zip code: [address] Past Medical History Allergies Allergen Reaction Date Comments Reported Other allergy 10/27/2016 Peanuts Admission Admission Data Admission Date: 09/06/2018 Admission Time: 9:16 Procedure Procedure Types Cath Procedure Diagnostic Procedure LHC LHC w/Coronaries PCI Procedure Coronary Stent Coronary Stent Initial Peripheral Cath Diagnostic Procedure Breakfast And Room Attendant Peripheral Procedures Rtwat-Vnwmqqb-Kky-Off Procedure Description Procedure Date Procedure Date: 09/06/2018 Procedure Start Time: 11:58 Procedure End Time: 12:26 Procedure Staff Name Function Taras Ashraf MD Performing Physician Sherif Valles RT Monitor Denise Nieves RT Scrub Ian Babcock RN Nurse Procedure Data Cath Procedure Fluoroscopy Diagnostic fluoroscopy Total fluoroscopy Time: 7.5 time: 7.5 min min Diagnostic fluoroscopy Total fluoroscopy dose: 415 dose: 415 mGy mGy Contrast Material Contrast Material Type Amount (ml) Isovue 300 82 Entry Location Entry Primary Successful Side Size Upsize Upsize Entry Closure Succes sful Closure Location (Fr) 1 (Fr) 2 (Fr) Remarks Device Remarks Femoral Right 5 Fr 6 Fr Exoseal artery Short Estimated blood loss: 10 ml Diagnostic catheters Device Type Used For End Catheter Placement MULTIPACK Pigtail 5 Fr Procedure catheter MULTIPACK JL 4.0 5Fr Procedure catheter MULTIPACK 3DRC 5Fr Procedure catheter MULTIPACK Pigtail 5 Fr Procedure catheter Procedure Complications No complications Procedure Medications Medication Administration Route Dosage Oxygen etCO2 Nasal cannula 2 l/min Heparin Flush Bag added to field 2 bags (1000units/500ml NS) 0.9% NaCl I.V. 100 ml/hr Lidocaine 2% added to field 20 Fentanyl I.V. 50 mcg Versed I.V. 1 mg Fentanyl I.V. 50 mcg Versed I.V. 1 mg Heparin Bolus I.V. 4000 units Integrilin (Bolus I.V. 7.3 ml 2mg/ml) Integrilin (Bolus wasted 2.7 ml 2mg/ml) Atropine I.V. 0.5 mg Hemodynamics Rest Heart Rate: 92 (bpm) Pressure Samples Time Site Value (mmHg) Purpose Heart Use Rate(bpm) 12:05 AO 98/53(71) Snapshot 81 12:20 AO 101/53(73) Snapshot 82 Snapshots Pre Cath Intra NCS Post Cath Vital Signs Time Heart Resp SPO2 etCO2 NIBP (mmHg) Rhythm Pain Sedation Rate (ipm) (%) (mmHg) Status Level (bpm) 11:45:38 94 16 100 0 130/73(91) NSR 0 (11) 10(A) , No pain 11:50:02 93 17 100 0 124/71(105) NSR 0 (11) 10(A) , No pain 11:54:24 90 16 100 0 123/72(97) NSR 0 (11) 10(A) , No pain 11:58:48 89 17 100 0 124/64(101) NSR 0 (11) 10(A) , No pain 12:03:13 91 16 100 0.7 111/67(100) NSR 0 (11) 9(A) , No pain 12:07:35 84 17 100 0 107/62(82) NSR 0 (11) 9(A) , No pain 12:11:55 75 16 100 0 93/57(82) NSR 0 (11) 9(A) , No pain 12:16:07 83 16 100 0 112/66(87) NSR 0 (11) 9(A) , No pain 12:20:25 82 17 100 0 101/69(87) NSR 0 (11) 9(A) , No pain 12:24:39 79 16 100 0 112/67(91) NSR 0 (11) 9(A) , No pain Medications Time Medication Route Dose Verified Delivered Reason Notes Effectiveness by by 11:49:02 Oxygen etCO2 2 Tarasdanilo Sosa Per physician Nasal l/min Pascale Babcock RN cannula 11:49:10 Heparin Flush added 2 Tarasdanilo Beardy used for Bag to bags Pascale Babcock RN procedure (1000units/500ml field NS) 11:49:19 0.9% NaCl I.V. 100 Taras Beardy Per physician ml/hr Pascale Babcock RN 11:49:45 Lidocaine 2% added 20ml Taras Beardy used for to vial Pascale Babcock RN procedure field 11:58:31 Fentanyl I.V. 50 Taras Sosa for sedation mcg Pascale Babcock RN 11:58:37 Versed I.V. 1 mg Taras Sosa for sedation Pascale Babcock RN 12:04:19 Fentanyl I.V. 50 Taras Sosa for sedation mcg Pascale Babcock RN 12:04:22 Versed I.V. 1 mg Taras Sosa for sedation Pascale Babcock RN 12:08:47 Heparin Bolus I.V. 4000 Taras Sosa for units Pascale Bbacock RN anticoagulation 12:09:00 Integrilin I.V. 7.3 Taras Sosa for (Bolus 2mg/ml) ml Pascale Babcock RN antiplatelet therapy 12:09:08 Integrilin wasted 2.7 Taras Sosa for (Bolus 2mg/ml) ml Pascale Babcock RN antiplatelet therapy 12:15:18 Atropine I.V. 0.5 Taras Sosa Per physician mg Pascale Babcock RN Procedure Log Time Note 11:20:56 Ian Babcock RN sent for patient. Start room use. 11:36:09 Time tracking: Regular hours (M-F 7:00 - 5:00) 11:36:14 Plan of Care:Hemodynamics will remain stable., Cardiac rhythm will remain stable., Comfort level will be maintained., Respiratory function will remain adequate., Patient/ family verbilizes understanding of procedure., Procedure tolerated without complication., Recovers from procedure without complications.. 11:36:15 Diagnostic Cath status Elective 11:36:16 Signed procedure consent form obtained from patient. 11:36:22 Patient received from Pre/Post Procedure Room to CCL 3 Alert and oriented. Tansferred to table in Supine position. 11:36:23 Warm blankets applied, and ibrahima hugger turned on for patient comfort. 11:36:23 Correct patient and procedure confirmed by team. 11:36:24 ECG and BP/O2 sat monitors applied to patient. 11:44:21 Vital chart was started 11:49:02 Oxygen 2 l/min etCO2 Nasal cannula was administered by Ian Babcock RN; Per physician; 11:49:10 Heparin Flush Bag (1000units/500ml NS) 2 bags added to field was administered by Ian Babcock RN; used for procedure; 11:49:19 0.9% NaCl 100 ml/hr I.V. was administered by Ian Babcock RN; Per physician; 11:49:45 Lidocaine 2% 20ml vial added to field was administered by Ian Babcock RN; used for procedure; 11:50:28 Baseline sample Acquired. 11:50:32 Rhythm: sinus rhythm 11:50:34 Full Disclosure recording started 11:50:44 H&P Date Dictated: 08/31/2018 Within 30 days and on chart., H&P Addendum completed by physician on day of procedure. (MUST COMPLETE FOR ALL OUTPATIENTS). 11:50:45 Pre-procedure instructions explained to patient. 11:50:45 Pre-op teaching completed and patient verbalized understanding. 11:50:52 Family in patients room. 11:50:53 Patient NPO since Midnight. 11:50:54 Is the patient allergic to Iodine/contrast media? No. 11:51:29 Is patient on blood thinner?No 11:51:31 Patient diabetic? No. 11:51:34 Previous problem with sedation/anesthesia? No ? 11:51:35 Snore? No 11:51:36 Sleep apnea? No 11:51:37 Deviated septum? No 11:51:37 Opens mouth fully? Yes 11:51:38 Sticks out tongue? Yes 11:51:40 Airway obstruction? No ? 11:51:41 Dentures? No ? 11:51:44 Pre procedure: right dorsailis pedis pulse 1+ Palpable, but thready & weak; easily obliterated 11:51:54 RESERVE RIGHT ARM 11:52:03 Patient pain scale 0/10 ?. 11:52:11 IV patent on arrival in left forearm with 0.9% NaCl at [facility]. 11:52:12 Lab results completed and on chart. 11:52:15 Right groin area was prepped with chlora-prep and draped in sterile fashion 11:52:16 Alarms reviewed by R. N. 11:52:16 Sharps counted by scrub and verified by R.N. 11:52:19 Use device set Femoral Dx 11:52:21 Tegaderm 4 x 4 (1626W) opened to sterile field. 11:52:22 ACIST Manifold (07858) opened to sterile field. 11:52:22 ACIST Hand Control (02893) opened to sterile field. 11:52:24 ACIST Syringe (11134) opened to sterile field. 11:52:24 Bag Decanter (2002S) opened to sterile field. 11:52:27 Medline Cath Pack ([id number]) opened to sterile field. 11:52:29 DIAGNOSTIC Multipack 5Fr catheter set (HI7932) opened to sterile field. 11:52:30 DIAGNOSTIC WIRE .035 260cm J wire (508499) opened to sterile field. 11:52:40 SHEATH 5FR Cordis Sameera(504605X) NO COST SUPPLY opened to sterile field. 11:53:15 Physician paged 11:57:09 --------ALL STOP TIME OUT------ 11:57:10 Final Timeout: patient, procedure, and site verified with staff and physician. All members of the team are in agreement. 11:57:16 Right groin site verified by team. 11:57:20 Fire Safety Assessment: A--An alcohol-based skin anteseptic being used preoperatively., C--Open oxygen or nitrous oxide is being used., D--An ESU, laser, or fiber-optic light is being used. 11:57:24 Physical assessment completed. ASA score P 2 - A patient with mild systemic disease as per Taras Ashraf MD. 11:57:27 Sedation plan: IV Moderate Sedation Medication:Versed, Fentanyl 11:58:31 Fentanyl 50 mcg I.V. was administered by Ian Babcock RN; for sedation; 11:58:37 Versed 1 mg I.V. was administered by Ian Babcock RN; for sedation; 11:58:49 Procedure started. 11:58:51 Local anesthetic to right femoral artery with Lidocaine 2% by Taras Ashraf MD.INITIAL ACCESS ONLY 12:02:53 5fr Sameera sheath unable to advance. 12:02:54 SHEATH 5FR Burton (ZHO591) opened to sterile field. 12:03:03 A 5 Fr sheath was inserted into the Right Femoral artery 12:03:08 A MULTIPACK Pigtail 5 Fr catheter was advanced over the wire and used for Procedure. 12:03:57 LV angiography performed. 12:03:58 LV gram done using HOANG 12:04:04 EF : 30 % 12:04:08 Injector settings: Ml/sec: 10, Volume: 20, 12:04:11 Catheter removed. 12:04:17 A MULTIPACK JL 4.0 5Fr catheter was advanced over the wire and used for Procedure. 12:04:19 Fentanyl 50 mcg I.V. was administered by Ian Babcock RN; for sedation; 12:04:22 Versed 1 mg I.V. was administered by Ian Babcock RN; for sedation; 12:05:10 LCA angiography performed. 12:05:58 Catheter removed. 12:06:04 A MULTIPACK 3DRC 5Fr catheter was advanced over the wire and used for Procedure. 12:06:33 Use device set TAUTH PCI 12:06:35 SHEATH 6FR Burton (FRI170) opened to sterile field. 12:06:38 CHOICE PT Extra Support 182cm wire ([id number]) opened to sterile field. 12:06:40 INFLATOR Merit BasixCompak (AS3681) opened to sterile field. 12:07:08 RCA angiography performed. 12:07:09 Catheter removed. 12:07:56 GUIDE 6FR HS II SH catheter ([id number]) opened to sterile field. 12:08:41 Sheath upsized to a 6 Fr Short. 12:08:47 Heparin Bolus 4000 units I.V. was administered by Ian Babcock RN; for anticoagulation; 12:08:55 6 Fr HS 2 SH guide catheter was inserted over the wire 12:09:00 Integrilin (Bolus 2mg/ml) 7.3 ml I.V. was administered by Ian Babcock RN; for antiplatelet therapy; 12:09:08 Integrilin (Bolus 2mg/ml) 2.7 ml wasted was administered by Ian Babcock RN; for antiplatelet therapy; 12:09:17 Guide Catheter removed. unable to cannulate vessel. 12:10:13 GUIDE 6FR 3DRC catheter ([id number]) opened to sterile field. 12:10:29 6 Fr 3DRC guide catheter was inserted over the wire 12:10:41 CPTXS wire advanced. 12:12:14 Wire advanced across lesion. 12:13:14 The DEMETRIA RX 3.5 x 15 stent ([id number]) was advanced then removed because of failure to cross lesion 12:13:48 Inflate balloon Inflation number: 1 A EUPHORA 3.0 x 15 Balloon ([id number]) was prepped and advanced across the Prox RCA, then inflated to 21 LAURA for 0:10 (min:sec). 12:14:10 Multiple inflations made at 21 Atms. 12:14:16 Balloon removed over the wire. 12:15:18 Atropine 0.5 mg I.V. was administered by Ian Babcock RN; Per physician; 12:16:09 Place stent Inflation Number: 2 A DEMETRIA RX 3.5 x 15 stent ([id number]) was prepped and advanced across the Prox RCA. The stent was deployed at 21 LAURA for 0:10 (min:sec). 12:16:40 Stent catheter was removed intact over wire. 12:16:41 Wire removed. 12:16:42 Guide catheter removed. 12:18:37 A MULTIPACK Pigtail 5 Fr catheter was advanced over the wire and used for Procedure. 12:19:36 Abdominal Aortagram was performed. 12:19:39 Right leg runoff performed. 12:19:40 Left leg runoff performed. 12:20:02 Catheter removed. 12:20:32 EXOSEAL 6Fr (EX600) opened to sterile field. 12:20:56 Sheath removed intact; hemostasis achieved with Exoseal to the Right Femoral artery. 12:20:58 Procedure ended.(Physican Out) 12:23:03 Fluoroscopy time 07.50 minutes. 12:23:11 Fluoroscopy dose: 415 mGy 12:23:11 Flurop Dose total: 415 12:23:33 Contrast amount:Isovue 300 82ml. 12:23:34 Sharps counted by scrub and verified by R.N. 12:24:21 Insertion/operative site no bleeding no hematoma. 12:24:25 Post-op/insertion site Right Femoral artery dressed using a 4 x 4 and Tegaderm. 12:24:26 Post Procedure Pulses reassessed and unchanged 12:24:29 Post-procedure physical assessment completed. ASA score P 2 - A patient with mild systemic disease as per Taras Ashraf MD. 12:24:31 Post procedure rhythm: unchanged. 12:24:34 Estimated blood loss: 10 ml 12:25:48 Post procedure instruction explained to patient.Patient verbalizes understanding. 12:25:49 Patient needs reinforcement of post procedure teaching. 12:26:04 Procedure type changed to Cath procedure, Diagnostic procedure, LHC, LHC w/Coronaries, PCI procedure, Coronary Stent, Coronary Stent Initial, Peripheral Cath Diagnostic Procedure, Breakfast And Room Attendant Peripheral Procedures, Eiedk-Mveuoxk-Ber-Off 12:26:05 Procedure and supply charges have been captured, reviewed, submitted and are correct. 12:26:08 Procedure Complication : No complications 12:26:44 Vital chart was stopped 12:26:45 See physician's report for complete and final results. 12:26:47 Report given to Pre/Post Procedure Room. 12:26:49 Patient transfered to Pre/Post Procedure Room with Stretcher. 12:26:51 Procedure ended. 12:26:51 Full Disclosure recording stopped 12:27:20 End room use (Document Last) Intervention Summary Intervention Notes Time ActionType Lesion and Equipment Used Action# Pressure Duration Attributes 12:13:14 Discard DEMETRIA RX 3.5 x Stent 15 stent ([id number]) 12:13:48 Inflate Prox RCA EUPHORA 3.0 x 1 21 00:10 balloon 15 Balloon ([id number]) 12:16:09 Place stent Prox RCA DEMETRIA RX 3.5 x 2 21 00:10 15 stent ([id number]) Device Usage Item Name Manufacture Quantity Catalog Number Hospital Part Current Minimal Lot# / Charge Number Stock Stock Serial# Code Tegaderm 4 x 4 3M 1 [id number] 028304 996627 5 (1626W) ACIST Manifold Acist 1 26848 791052 556922 924909 5 (82776) Medical Systems TheySay ACIST Hand Acist 1 04296 701470 842793 352649 5 Control (14649) Medical Systems Inc ACIST Syringe Acist 1 14185 792179 373951 965896 20 (97318) Medical Systems Inc Bag Decanter Microtek 1 2001S 181828 18110 534124 5 (2001S) Medical Inc. Medline Cath Medline 1 [id number] 695473 78622 986723 5 Pack ([id number]) DIAGNOSTIC Cardinal 1 SP1062 976377 19360 827711 30 Multipack 5Fr Health catheter set (HG5907) DIAGNOSTIC WIRE St Fito 1 149941 561519 203799 838448 30 .035 260cm J wire (751681) SHEATH 5FR Cardinal 1 504-605X 841708 229908 5 Axium Nanofibers Sameera(504-605X) NO COST SUPPLY SHEATH 5FR Terumo 1 UWF059 679438 684943 133854 5 Burton (YPH997) MULTIPACK Cardinal 1 730955 5 Pigtail 5 Fr Health catheter MULTIPACK JL 4.0 Cardinal 1 961492 5 5Fr catheter Health MULTIPACK 3DRC Cardinal 1 276886 5 5Fr catheter Health SHEATH 6FR Terumo 1 MAO920 851657 028262 820045 40 Burton (PSB073) CHOICE PT Extra [place] 1 [id number] 101999 811570 925598 5 Support 182cm Scientific wire ([id number]) INFLATOR Merit Merit 1 RU1513 455381 184632 435335 15 Lean Startup MachineBeaver Valley HospitalBioMetric Solution Medical (LF0158) GUIDE 6FR HS II Medtronic 1 [id number] 904304 53143 774755 1 SH catheter (CO2GMVEZV) GUIDE 6FR 3DRC Medtronic 1 FH69IIW 209201 597266 458988 1 catheter (GH49ZBY) DEMETRIA RX 3.5 x 15 Medtronic 1 [id number] 316446 1829044 211976 5 [id number] stent ([id number]) EUPHORA 3.0 x 15 Medtronic 1 [id number] 746794 297635 673814 5 [id number] Balloon ([id number]) EXOSEAL 6Fr Cardinal 1 EX600 210211 540690 674011 10 (EX600) Health Signature Audit [place]oman Stage Time Signature Unsigned Intra-Procedure 09/06/2018 Sherif Valles 12:30:02 PM RT(R) Signatures Monitor : Sherif Valles RT Signature : Date : Time : [facility] [address] [place] [address]
[2018-09-06 09:54] VITALS: BP 137/66; Ht 165.1 cm; Wt 81.8 kg
[2018-09-06 10:10] LABS: BASOPHILS 0.1 % (0-2); EOSINOPHILS 1.5 % (0-7); HEMATOCRIT 35.3 % (36.0-48.0); HEMOGLOBIN 11.4 g/dL (12-16); IMMATURE GRANULOCYTES 0.1 % (0-5); MCH 29.7 pg (26.0-34.0); MCHC 32.3 g/dL (31.0-37.0); MCV 91.9 fL (80.0-100.0); MEAN PLATELET VOLUME 12.6 fL (7.4-10.4); NEUTROPHILS 76.3 % (40-80); PLATELET COUNT 129 10x3/uL (130-400); RBC 3.84 10x6/uL (4.00-5.40); RDW 17.5 % (11.5-14.5); WBC 7.4 10x3/uL (4.8-10.8)
[2018-09-06 10:19] LABS: ANION GAP 14.6 mmol/L (8-16); CALCIUM 9.4 mg/dL (8.5-10.1); CARBON DIOXIDE 30.5 mmol/L (21.0-32.0); POTASSIUM - SERUM 4.1 mmol/L (3.5-5.1)
[2018-09-06] MEDS ORDERED: HYDROCODON-ACE1 EAC7 PO (11:03)
[2018-09-06] MEDS ORDERED: RENVELA800 MG PO (11:05)
[2018-09-06] MEDS ORDERED: ZYRTEC10 MG PO (11:06)
[2018-09-06] MEDS ORDERED: PLAVIX75 MG PO (12:39)
--- NOTE | 2018-09-06 12:55 | NUR ---
2L NC, NO RESP DISTRESS. RIGHT GROIN 6F EXOSEAL CDI, NO BLEEDING OR HEMATOMA NOTED. NO C/O PAIN OR NAUSEA. VSS. FAMILY AT BEDSIDE, CALL LIGHT WITHIN REACH.
--- NOTE | 2018-09-06 13:25 | NUR ---
RIGHT GROIN 6F EXOSEAL CDI, NO BLEEDING OR HEMATOMA NOTED. 2L NC WITH NO RESP DISTRESS. NO NEEDS VOICED. VSS. WILL CONTINUE TO MONITOR.
--- NOTE | 2018-09-06 13:40 | NUR ---
RESTING QUIETLY WITH EYES CLOSED. RIGHT GROIN 6F EXOSEAL CDI, NO BLEEDING OR HEMATOMA NOTED. DENIES ANY NEEDS OR C/O. VSS. CALL LIGHT WITHIN REACH.
--- NOTE | 2018-09-06 14:10 | NUR ---
CONTINUES TO REST COMFORTABLY WITH NO C/O. 2L NC WITH NO RESP DISTRESS. RIGHT GROIN 6F EXOSEAL CDI, NO BLEEDING OR HEMATOMA NOTED. VSS. WILL CONTINUE TO MONITOR.
--- NOTE | 2018-09-06 14:30 | NUR ---
C/O BEING HOT AND HAVING NAUSEA. VOMITED SMALL AMOUT OF LIQUID. ZOFRAN GIVEN PER ORDERS. VSS. WILL CONTINUE TO MONITOR CLOSELY.
--- NOTE | 2018-09-06 14:49 | NUR ---
RIGHT GROIN 6F EXOSEAL CDI, NO BLEEDING OR HEMATOMA NOTED. NO C/O NAUSEA. "STATES SHE FEELS MUCH BETTER." VSS. CALL LIGHT WITHIN REACH.
--- NOTE | 2018-09-06 15:35 | NUR ---
HOB ELEVATEDE 30 DEGREES. RIGHT GROIN 6F EXOSEAL CDI, NO BLEEDING OR HEMATOMA NOTED. SIPPING ON DRINK AND EATING SANDWICH WITH NO C/O NAUSEA. VSS. WILL CONTINUE TO MONITOR CLOSELY.
--- NOTE | 2018-09-06 16:05 | NUR ---
LEFT PIV D/C'D WITH CATHETER INTACT, BAND AID TO SITE. TO BEDSIDE TO GET DRESSED.
--- NOTE | 2018-09-06 16:15 | NUR ---
DISCHARGE INSTRUCTIONS ALONG WITH PLAVIX PRESCRIPTION GIVEN, VERBALIZED UNDERSTANDING.
--- NOTE | 2018-09-06 16:27 | NUR ---
TAKEN OUT VIA WHEELCHAIR BY CATH HEAVY EQUIPMENT SERVICE MANAGER. LEFT FACILITY WITH FAMILY AND ALL PERSONAL BELONGINGS.
--- NOTE | 2018-09-11 11:45 | OP ---
PATIENT NAME: ARLYN ROLLE MEDICAL RECORD: [id number] :57 LOCATION:D.CAT ADMISSION DATE: SURGEON: GARRY BASS MD DATE OF OPERATION: 09/06/2018 PROCEDURES: 1. PTCA stent RCA. 2. Left heart catheterization. 3. Selective coronary angiography. 4. Left ventriculogram. INDICATION: Angina and coronary artery disease. PROCEDURE IN DETAIL: After informed consent was obtained and after a detailed description of risks, benefits as well as alternative therapies, the patient elected to proceed with angiogram and angioplasty. The right femoral area was prepped and draped in normal sterile fashion. Right femoral artery cannulated via modified Seldinger technique with placement of 6-Romanian sheath. All catheters exchanged through this sheath. FINDINGS: Left ventriculogram was performed in standard 30-degree HOANG view, reveals global hypokinesis throughout all segments, overall ejection fraction in the 30% range. SELECTIVE CORONARY ANGIOGRAPHY: 1. Left main is with no significant angiographic disease. 2. Left anterior descending has previously placed stents, these are closed. 3. Left circumflex has mild irregularities, but no flow-limiting stenosis. 4. Right coronary has a previously placed stent proximally. There is 90% in-stent restenosis. PTCA STENT OF THE RIGHT CORONARY: The stent used was 3.5 x 15 mm [place]. Result was 0% residual stenosis. OVERALL IMPRESSION: Successful percutaneous transluminal coronary angioplasty stent of the RCA going from 90% initial stenosis to 0% residual. TRANSINT:[id number] Voice Confirmation ID: [id number] DOCUMENT ID: [id number] GARRY BASS MD at 1145 CC: [id number] DICTATION DATE: 09/06/18 1227 MAXILLOFACIAL PROSTHETICS DENTIST: 09/06/18 1304 DEP CLI 09/06/18 [place] [id number]
--- NOTE | 2018-09-11 11:45 | OP ---
PATIENT NAME: ARLYN ROLLE MEDICAL RECORD: [id number] :57 LOCATION:D.CAT ADMISSION DATE: SURGEON: GARRY BASS MD DATE OF OPERATION: 09/06/2018 PROCEDURES: 1. Aortofemoral runoff. 2. Abdominal aortography. INDICATION: Claudication and peripheral vascular disease. PROCEDURE IN DETAIL: After informed consent was obtained and after a detailed description of risks, benefits as well as alternative therapies, the patient elected to proceed with angiogram and aortofemoral runoff. The abdominal angiography was performed. The catheter was pulled down for aortofemoral runoff. FINDINGS: Abdominal aortography reveals no significant abdominal aortic disease, no dissection or aneurysm formation. RIGHT LEG: A. Iliac: The common internal and external iliacs have mild irregularities, but no flow-limiting stenosis. B. Femoral system: The common superficial and deep femoral have mild irregularities, but no flow-limiting stenosis. C. Popliteal and infrapopliteal vessels are patent, although diffusely diseased, there is 3-vessel runoff to the foot. LEFT LEG: A. Iliac: The common internal and external iliacs have mild irregularities, but no flow-limiting stenosis. B. Femoral system: The common superficial and deep femoral have mild irregularities, but no flow-limiting stenosis. 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 OVERALL IMPRESSION: Wide patency with no significant stenosis of the right leg as well as the SFA on the left leg. Continue medical management of the peripheral vascular disease and peripheral risk factors. TRANSINT:[id number] Voice Confirmation ID: [id number] DOCUMENT ID: [id number] GARRY BASS MD at 1145 CC: [id number] DICTATION DATE: 09/06/18 1227 RIDE ATTENDANT: 09/06/18 1305 DEP CLI 09/06/18 [place] [address]
== END 2018-09-06 16:27 | disposition home or self-care (01) ==
LOC: D.CATH 09:16
PROVIDERS: Internal Medicine Interventional Cardiology
DX: I25.119 Atherosclerotic heart disease of native coronary artery with unspecified angina pectoris (principal); I48.91 Unspecified atrial fibrillation; I70.219 Atherosclerosis of native arteries of extremities with intermittent claudication, unspecified extremity; Z01.812 Encounter for preprocedural laboratory examination
CPT/HCPCS: 93458; C9600

== ENCOUNTER 2019-01-26 22:17 | Observation (INO) | payer MEDICARE ==
[~2019-01-26] VITALS: Ht 165.1 cm; Wt 120.5 kg
--- NOTE | ~2019-01-26 | EC ---
PATIENT:ARLYN ROLLE DATE OF SERVICE: 01/27/19 SEX: F MEDICAL RECORD: [id number] DATE OF : 57 LOCATION:D.M2 D.213 AGE OF PATIENT: 63 ADMISSION DATE: 01/27/19 REFERRING PHYSICIAN: INTERPRETING PHYSICIAN: MITCHELL SIDDIQUI MD ECHOCARDIOGRAM REPORT ECHO CHARGES 4 ECHO COMPLETE Date: 01/27/19 CLINICAL DIAGNOSIS: CHF ECHOCARDIOGRAPHIC MEASUREMENTS (adult normal given) AC root (d.<3.7cm) 2.8 cm LV Septum d (<1.2 cm> 1.0 cm Valve Excursion 1.4 cm LV Septum (systole) 1.2 cm Left Atria (s.<4.0cm> 4.6 cm LVPW d(<1.2cm) 1.4 cm RV (d.<2.3cm) 3.5 cm LVPW (sytole) 1.7 cm LV diastole(<5.6CM) 3.7 cm MV E-F(>70mm/sec) cm LV systole 2.7 cm LVOT Diameter 1.8 cm MV exc.(>10mm) cm Est.ejection fraction (50-75%) % DOPPLER: LVIT cm/sec A 36 cm/sec E 87 cm/sec LA cm/sec RVSP 58.0 mmHg LVOT 172 cm/sec AOP1/2T m/s Asc. Ao 259 cm/sec RVOT 95 cm/sec RA cm/sec PA 80 cm/sec AV Gradient Peak 26.8 mmHg AV Mean 13.0 mmHg AV Area 1.9 cm MV Gradient Peak 4.9 mmHg MV Mean 2.2 mmHg MV Area cm COMMENTS: Marine Steward: Zandra COVARRUBIAS Fire Equipment Operator: 3 Dr. Narvaez TAPE# PACS Pericardial Effusion N DATE OF SERVICE: 01/27/2019 Adequate 2-D echo, color-flow and spectral Doppler, and M-mode. LVH is present. LV internal dimensions are normal. LV is globally hypokinetic with reduced EF. Estimated EF is 30% to 35%. Aortic valve is calcified with restriction of leaflet motion. Calculated aortic valve area is 1.9 mm, putting this in mild range. Left atrium is dilated at 4.6 cm. Mitral valve shows no prolapse. Mild MR. Right-sided chambers appear grossly normal. Severe TR. ECHOCARDIOGRAM REPORT [id number] ARLYN ROLLE TRANSINT:[id number] Voice Confirmation ID: [id number] DOCUMENT ID: [id number] MITCHELL SIDDIQUI MD CC: [id number] DICTATION DATE: 01/28/19 1013 MACHINE FELLER: 01/28/19 1317 DIS IN 01/27/19 [facility] [address] [place] [id number]
[~2019-01-26 22:17] MED LIST changes: +HYDROCODON-ACE1 EAC7 PO; +RENVELA800 MG PO; +ZYRTEC10 MG PO
[2019-01-26] MEDS ORDERED: SENSIPAR30 MG PO (22:22)
[2019-01-26] MEDS ORDERED: RENVELA0.8 GM PO (22:23)
[2019-01-27] VITALS (8 sets, daily range): BP systolic 109–132; BP diastolic 40–77; Ht 165.1 cm; Wt 120.5 kg
--- NOTE | 2019-01-27 03:30 | NUR ---
REPORT GIVEN TO TERRY VIEIRA AT 0328, PT GETTING CT BEFORE GOING TO ASSIGNED ROOM.
--- NOTE | 2019-01-27 04:45 | NUR ---
ADMITTED FROM ER VIA WC SKIN WARM AND DRY DENIES CP CO ABD PAIN ABD IS DISTENDED WITH HYPERACTIVE BOWEL SOUNDS IV IS SALINE LOKED PT IS FIXATED ON HAVING A BM AND EITHER CAN NOT OR WILL NOT ANSWER QUESTIONS ABOUT MED HISTORY. BED IS LOW AND LOCKED AND CALL LIGHT IS PROVIDED...BEDSIDE COMODE ABTAINED FOR PT
--- NOTE | 2019-01-27 07:10 | NUR ---
REPORT RECEIVED FROM CONCRETE FINISHER APPRENTICE AND PATIENT CARE ASSUMED. PATIENT LAYING IN BED ON BACK AWAKE, ALERT AND ORIENTED X 4. PATIENT IS STABLE AND VSS. PATIENT DENIES ANY NEEDS OR PAIN. PATIENT AWAITING DIALYSIS. WILL CONTINUE WITH PLAN OF CARE. SR UP X 2 BED IN LOW POSITION AND CALL LIGHT IN REACH.
--- NOTE | 2019-01-27 08:45 | NUR ---
PATIENT IS STABLE AND VSS. PATIENT TO DIALYSIS VIA HOSPITAL BED AND AND HOSPITAL PERSONNEL.
[2019-01-27 10:42] LABS: BASOPHILS 0.1 % (0-2); EOSINOPHILS 0.5 % (0-7); HEMATOCRIT 28.4 % (36.0-48.0); HEMOGLOBIN 9.2 g/dL (12-16); IMMATURE GRANULOCYTES 0.1 % (0-5); LYMPHOCYTES 9.8 % (15-50); MCH 27.2 pg (26.0-34.0); MCHC 32.4 g/dL (31.0-37.0); MEAN PLATELET VOLUME 11.1 fL (7.4-10.4); MONOCYTES 10.8 % (2-11); NEUTROPHILS 78.7 % (40-80); PLATELET COUNT 145 10x3/uL (130-400); RBC 3.38 10x6/uL (4.00-5.40); RDW 18.8 % (11.5-14.5); WBC 7.3 10x3/uL (4.8-10.8)
[2019-01-27 10:54] LABS: ALBUMIN 2.1 g/dL (3.4-5.0); ANION GAP 14.1 mmol/L (8-16); BILIRUBIN - TOTAL 0.48 mg/dL (0.2-1.3); CALCIUM 9.5 mg/dL (8.5-10.1); CARBON DIOXIDE 26.5 mmol/L (21.0-32.0); CREATININE - SERUM 7.2 mg/dL (0.6-1.3); POTASSIUM - SERUM 3.6 mmol/L (3.5-5.1); PROTEIN - SERUM 7.6 g/dL (6.4-8.2)
--- NOTE | 2019-01-27 13:42 | NUR ---
PATIENT RETURNED FROM DIALYSIS. PATIENT IS STABLE AND VSS. PATIENT DENIES ANY NEEDS OR PAIN. WILL CONTINUE TO MONITOR.
--- NOTE | 2019-01-27 18:34 | NUR ---
PATIENT IS STABLE AND VSS. PATIENT DC TO HOME. WRITTEN AND VERBAL INSTRUCTIONS GIVEN. PATIENT VERBALIZED UNDERSTANDING AND SIGNED PAPERS. IV DC WITHOUT DIFFICULTY WITH CATHETER INTACT. PATIENT TO FRONT DOOR VIA WC TO PRIVATE VEHICLE DRIVEN BY FAMILY.
--- NOTE | 2019-01-28 10:48 | CN ---
PATIENT NAME:ARLYN ROLLE MEDICAL RECORD: [id number] : 57 LOCATION:D. D.2130 ADMIT DATE: 01/27/19 ACCOUNT: [id number] CONSULTING PHYSICIAN: MITCHELL SIDDIQUI MD REFERRING PHYSICIAN: GEOVANY CLARK MD DATE OF CONSULTATION: 01/27/2019 HISTORY OF PRESENT ILLNESS: A 63-year-old female with known history of coronary disease, status post intervention via Dr. Ashraf. She has a history of chronic renal insufficiency as well as peripheral vascular disease, status post left AKA, was transferred from [place] with volume overload, chest tightness and pressure. Subsequently was found to have elevated cardiac enzymes consistent with NSTEMI. Currently pain free. Dyspnea has improved by her report. PAST MEDICAL HISTORY: Includes; 1. History of coronary disease, status post intervention. 2. Dyslipidemia. 3. Chronic renal insufficiency. 4. Peripheral vascular disease. MEDICATIONS: Include Sensipar 30 mg p.o. daily, Renvela 2400 mg t.i.d. with meals, aspirin 325 every day, Zocor 20 q.h.s., lisinopril 10 every day, Imdur 30 t.i.d., Plavix 75 every day. SOCIAL HISTORY: Lives in [place]. Nonsmoker, nondrinker. Good family support. ALLERGIES: PEANUT. REVIEW OF SYSTEMS: The patient reports easy bruising but reports no swollen glands. The patient reports no fever, no night sweats, no significant weight gain, no significant weight loss. No significant exercise tolerance. The patient reports no dry eyes, no irritation, no vision change. Patient reports no difficulty hearing and no ear pain. Patient reports no frequent nose bleeds or nose and sinus problems. Patient reports on arm pain on exertion. No shortness of breath while lying down. No history of heart murmur. Patient reports no cough, no wheezing or coughing up blood. Patient reports no abdominal pain, no vomiting. Normal appetite. No diarrhea and not vomiting blood. No nausea and no constipation. Patient reports no incontinence. No difficulty urinating. No hematuria. No increased frequency. Patient reports no muscle aches. No weakness, no arthralgias, no back pain. No swelling of the extremities. Patient reports no abnormal mole, no jaundice, no rashes. Reports no loss of consciousness. No weakness and no numbness. No seizures, dizziness, or headaches. The patient reports no depression, no sleep disturbance, feeling safe in a relationship and no alcohol abuse. Patient reports on fatigue. Reports no runny nose or sinus pressure. No itching, no hives, and no frequent sneezing. PHYSICAL EXAMINATION: GENERAL: Pleasant female, in no acute distress, appears stated age. VITAL SIGNS: Blood pressure 115/40, pulse 99 and regular. HEENT: Normocephalic, atraumatic. NECK: No bruits are noted. HEART: Regular. S4 gallop is noted. LUNGS: Fairly good air excursion. CONSULT REPORT [id number] ARLYN ROLLE ABDOMEN: Soft, nontender. EXTREMITIES: Pulses 1+ on the right. Well-healed BKA on the left. IMPRESSION: Khy-KN-evfewpbky myocardial infarction with known history of coronary artery disease. Restart medications. Plan on angiography to delineate anatomy in the near future. TRANSINT:[id number] Voice Confirmation ID: [id number] DOCUMENT ID: [id number] MITCHELL SIDDIQUI MD at 1048 CC: [id number] DICTATION DATE: 01/27/19 0955 NEON ELECTRICIAN: 01/27/19 1208 DIS IN 01/27/19 [id number] [place] [address]
--- NOTE | 2019-01-29 08:57 | MORECARE ---
CASE MANAGEMENT DISCHARGE SUMMARY PATIENT: ARLYN ROLLE UNIT: [id number] ADM DATE: 01/27/19 AGE: 63 : 57 SEX: F ROOM/BED: D.2130 AUTHOR: IVAN TADEO PHYSICIAN: REFERRING PHYSICIAN: GEOVANY CLARK MD DATE OF SERVICE: 01/29/19 Discharge Plan Patient Name: ARLYN [facility]OLLE [facility] [facility] 1955 Planned Disposition: Home Anticipated Discharge Date: 01/27/19 Discharge Date: 01/27/2019 Expected LOS: 1 Initial Reviewer: [email or web address] Initial Review Date: 01/29/2019 Generated: 01/29/19 9:57 am Patient Name: ARLYN ROLLE Page [phone] at 0857 All edits/amendments must be made on the electronic document DICTATION DATE: 01/29/19 0857 SENIOR LABEL SPECIALIST: NITO 01/29/19 0857 RPT#: [id number] DC DATE:01/27/19 STATUS: DIS IN [facility] [address] [place] [address] END OF REPORT
== END 2019-01-27 18:36 | disposition home or self-care (01) ==
LOC: D.ER 22:17 → D.M2 01-27 02:47 → OBSVTIME 01-27 02:47 → D.M2 01-27 02:47
PROVIDERS: ADMIT Internal Medicine Nephrology; ATTEND Internal Medicine Nephrology
DX: I13.2 Hypertensive heart and chronic kidney disease with heart failure and with stage 5 chronic kidney disease, or end stage renal disease (principal); E11.22 Type 2 diabetes mellitus with diabetic chronic kidney disease; I50.9 Heart failure, unspecified; N18.6 End stage renal disease; E11.51 Type 2 diabetes mellitus with diabetic peripheral angiopathy without gangrene; J98.11 Atelectasis; E78.5 Hyperlipidemia, unspecified; Z89.612 Acquired absence of left leg above knee; I21.4 Non-ST elevation (NSTEMI) myocardial infarction

== ENCOUNTER 2019-04-02 12:33 | Emergency (ER) | payer MEDICARE ==
[~2019-04-02] VITALS: Ht 165.1 cm; Wt 79.5 kg
[~2019-04-02 12:33] MED LIST changes: +RENVELA0.8 GM PO
[2019-04-02 12:46] VITALS: Ht 165.1 cm; Wt 79.5 kg
[2019-04-02 16:41] LABS: BASOPHILS 0.1 % (0-2); EOSINOPHILS 1.6 % (0-7); HEMATOCRIT 36.9 % (36.0-48.0); HEMOGLOBIN 12.4 g/dL (12-16); IMMATURE GRANULOCYTES 0.1 % (0-5); LYMPHOCYTES 13.8 % (15-50); MCH 29.7 pg (26.0-34.0); MCHC 33.6 g/dL (31.0-37.0); MCV 88.5 fL (80.0-100.0); MONOCYTES 9.8 % (2-11); NEUTROPHILS 74.6 % (40-80); RBC 4.17 10x6/uL (4.00-5.40)
[2019-04-02 16:58] LABS: PLATELET COUNT 112 10x3/uL (130-400)
[2019-04-02 16:59] LABS: ALBUMIN 2.9 g/dL (3.4-5.0); BILIRUBIN - TOTAL 0.59 mg/dL (0.2-1.3); CALCIUM 9.8 mg/dL (8.5-10.1); CARBON DIOXIDE 27.2 mmol/L (21.0-32.0); CREATININE - SERUM 9.9 mg/dL (0.6-1.3); POTASSIUM - SERUM 4.2 mmol/L (3.5-5.1); PROTEIN - SERUM 9.4 g/dL (6.4-8.2)
[2019-04-02 17:40] VITALS: BP 120/46
== END 2019-04-02 17:42 | disposition home or self-care (01) ==
LOC: D.ER 12:33
PROVIDERS: Family Medicine
DX: M79.89 Other specified soft tissue disorders (principal); Z89.512 Acquired absence of left leg below knee; I11.0 Hypertensive heart disease with heart failure; I50.9 Heart failure, unspecified; E11.9 Type 2 diabetes mellitus without complications

== ENCOUNTER 2019-04-09 10:31 | Inpatient (IN) | payer MEDICARE ==
[~2019-04-09] VITALS: Ht 165.1 cm; Wt 75.9 kg
[2019-04-09 11:56] LABS: BASOPHILS 0.3 % (0-2); EOSINOPHILS 1.8 % (0-7); HEMOGLOBIN 12.4 g/dL (12-16); IMMATURE GRANULOCYTES 0.1 % (0-5); LYMPHOCYTES 11.5 % (15-50); MCH 29.8 pg (26.0-34.0); MCHC 33.5 g/dL (31.0-37.0); MCV 88.9 fL (80.0-100.0); MONOCYTES 12.8 % (2-11); NEUTROPHILS 73.5 % (40-80); PLATELET COUNT 125 10x3/uL (130-400); RBC 4.16 10x6/uL (4.00-5.40)
[2019-04-09 11:59] LABS: INR 1.11 (0.85-1.17); PROTIME 13.8 SECONDS (11.6-15.0)
[2019-04-09 12:07] LABS: ANION GAP 21.4 mmol/L (8-16); CALCIUM 9.7 mg/dL (8.5-10.1); CARBON DIOXIDE 24.3 mmol/L (21.0-32.0); CREATININE - SERUM 13.9 mg/dL (0.6-1.3); POTASSIUM - SERUM 4.7 mmol/L (3.5-5.1)
[2019-04-09 12:25] VITALS: BP 146/72; BMI 27.9
--- NOTE | 2019-04-09 12:45 | NUR ---
PATIENT IS HERE FROM [facility] SHE SAYS. SHE HAS FAMILY WITH HER. SHE HAS A RIGHT UPPER ARM FISTULA AND STATES THAT SHE HAS HAD A COMPLICATION WITH IT. SHE HAD DIALYSIS LAST ON TUESDAY, AND TUESDAY THEY COULD NOT ACCESS THE FISTULA, ACCORDING TO PATIENT.
[2019-04-09 15:56] VITALS: BP 136/66
--- NOTE | 2019-04-09 16:57 | NUR ---
PATIENT HAS A VERY DISTENDED ABDOMEN. IT IS FIRM AND TIGHT.
--- NOTE | 2019-04-09 17:20 | NUR ---
PAGED BALJEET AMATO FOR RENAL DR CLARK. THERE IS A ORDER TO CONSULT DR MALDONADO FOR THE CLOTTED GRAFT. DR JALLOH WAS CONSULTED. BALJEET SAYS IT IS FINE FOR THE PATIENT TO EAT AND BE NPO AFTER MIDNIGHT. SHE SAID TO CALL ERICA AND ASK AND MAKE SURE FIRST. I JUST PAGED DR MALDONADO.
--- NOTE | 2019-04-09 17:31 | NUR ---
DR JALLOH SAYS IF DR MALDONADO IS NOT ON THE SCHEDULE IN OR FOR ANY MORE PROCEDURES THIS EVENING , IT IS SAFE TO ASSUME THAT THE PROCEDURE WILL NOT HAPPEN UNTIL TOMORROW AND WE CAN FEED THE PATIENT A MEAL AND MAKE HER NPO AFTER MIDNIGHT. NO ANSWER IN OR. WILL CALL [facility].
[2019-04-09 20:00] VITALS: BP 101/57
--- NOTE | 2019-04-09 20:45 | NUR ---
PT A/OX4, VOICES NEEDS, RIGHT AV FISTULA CLOTTED WITH NO BRUIT PRESENT, C/O SORENESS @ SITE, FAMILY PRESENT IN ROOM, NO C/O @ THIS TIME
--- NOTE | 2019-04-10 03:26 | NUR ---
I have reviewed this patient and I concur with the Shift Assessment completed by the Licensed Practical Nurse today this shift.
[2019-04-10 04:30] VITALS: BP 116/65
[2019-04-10 05:01] LABS: INR 1.16 (0.85-1.17); PROTIME 14.2 SECONDS (11.6-15.0)
[2019-04-10 05:10] LABS: ANION GAP 18.9 mmol/L (8-16); CALCIUM 9.1 mg/dL (8.5-10.1); CARBON DIOXIDE 25.1 mmol/L (21.0-32.0); CREATININE - SERUM 14.7 mg/dL (0.6-1.3)
[2019-04-10 05:36] LABS: HEMATOCRIT 34.6 % (36.0-48.0); HEMOGLOBIN 11.3 g/dL (12-16); LYMPHOCYTES 14.2 % (15-50); MCH 29.3 pg (26.0-34.0); MCHC 32.7 g/dL (31.0-37.0); MCV 89.6 fL (80.0-100.0); MEAN PLATELET VOLUME 11.6 fL (7.4-10.4); NEUTROPHILS 65.7 % (40-80); RBC 3.86 10x6/uL (4.00-5.40); RDW 18.5 % (11.5-14.5); WBC 6.8 10x3/uL (4.8-10.8)
[2019-04-10 05:37] LABS: PLATELET COUNT 96 10x3/uL (130-400)
[2019-04-10 05:59] LABS: PLATELET ESTIMATE DECREASED
--- NOTE | 2019-04-10 07:15 | NUR ---
REC'D IN BED WITH EYES CLOSED EASILY TO AROUSED WHEN NAME IS CALLED. RESP EVEN AND UNLABORED WITH NO DISTRESS NOTED. CAN EXPRESS NEEDS AND WANTS. NO C/O NOTED OR VOICED. DENIES ANY PAIN OR DISCOMFORT AT THIS TIME. FAMILY AND C/L IN REACH AT BEDSIDE.
[2019-04-10 10:03] VITALS: BP 137/50
[2019-04-10 12:00] VITALS: BP 136/83
[2019-04-10 12:55] VITALS: BMI 27.7
--- NOTE | 2019-04-10 14:11 | NUR ---
I have reviewed this patient and I concur with the Shift Assessment completed by the Licensed Practical Nurse today this shift.
--- NOTE | 2019-04-10 15:08 | NUR ---
REC'D CALL FROM DR. MALDONADO STATING THAT THEY WILL ONLY BE DOING PT HEMOSPLIT ON TODAY SO THAT SHE MAY GET DAILYSIS AND THE OTHER PROCEDURES ON TOMORROW. CONSENT WAS OBTAIN FOR HEMOSPLIT CATH PLACEMENT. PT MADE AWARE. C/L IN REACH AT BEDSIDE.
[2019-04-10 17:00] VITALS: BP 123/55
[2019-04-10 20:00] VITALS: BP 129/72
[2019-04-11 00:30] VITALS: BP 122/51
--- NOTE | 2019-04-11 07:15 | NUR ---
PT RESTING IN BED, SHIFT ASSESSMENT PERFORMED. FAMILY AT BEDSIDE. DENIES ANY NEEDS AT THIS TIME, WILL CONT TO FOLLOW POC
[2019-04-11 08:35] VITALS: BP 120/59
[2019-04-11 08:43] VITALS: Ht 165.1 cm; Wt 75.9 kg
--- NOTE | 2019-04-11 09:30 | NUR ---
PT TRANSPORTED DOWN TO DIALYSIS VIA WHEELCHAIR
[2019-04-11 09:43] LABS: CALCIUM 9.6 mg/dL (8.5-10.1); CARBON DIOXIDE 23.4 mmol/L (21.0-32.0); CREATININE - SERUM 15.6 mg/dL (0.6-1.3); POTASSIUM - SERUM 5.4 mmol/L (3.5-5.1); VANCOMYCIN - RANDOM 13.1 ug/mL (10.0-20.0)
--- NOTE | 2019-04-11 11:45 | NUR ---
OR CALLED TO PRE-OP PT. PT IN DIALYSIS. CALLED DIALYSIS AND ALERTED THEM TO PULL PT OFF MACHINE FOR SURGERY. DIALYSIS AGREED AND WILL CALL NURSE BACK TO COME GET HER ONCE SHE IS OFF MACHINE.
--- NOTE | 2019-04-11 11:50 | NUR ---
PT BROUGHT BACK TO [facility] 2 VIA WHEELCHAIR AND TRANSFERRED INTO BED. PT LEFT FLOOR FOR SURGERY
--- NOTE | 2019-04-11 13:45 | NUR ---
PT RETURNED TO FLOOR FROM SURGERY, VSS AND WNL. WILL CONT TO FOLLOW POC
--- NOTE | 2019-04-11 14:00 | NUR ---
PT RESTING IN BED, VSS AND WNL. DENIES ANY NEEDS AT THIS TIME, WILL CONT TO FOLLOW POC
--- NOTE | 2019-04-11 16:00 | NUR ---
PT RESTING IN BED, VSS AND WNL. DENIES ANY NEEDS AT THIS TIME, WILL CONT TO FOLLOW POC
[2019-04-11 16:45] VITALS: BP 123/62
[2019-04-12 01:14] VITALS: BP 111/46
[2019-04-12 05:07] VITALS: BP 127/72; BP 99/44
--- NOTE | 2019-04-12 07:30 | NUR ---
A/A/0X4. NO C/O OR REQUESTS AT THIS TIME. ASSESSMENT CONPLETED AND WILL CONTINUE POC. SL PATENT TO LEFT FOREARM.
[2019-04-12 08:47] VITALS: BP 100/42
[2019-04-12 08:54] LABS: INR 2.02 (0.85-1.17); PROTIME 22.2 SECONDS (11.6-15.0)
--- NOTE | 2019-04-12 09:15 | NUR ---
FORMS SIGNED FOR CTA WITH AFRO TODAY AND INSTRUCTED ON NPO AT THIS TIME FOR THE PROCEDURE. VERBALIZES UNDERSTANDING.
--- NOTE | 2019-04-12 09:45 | NUR ---
TO DAILYSIS VIA BED
--- NOTE | 2019-04-12 10:55 | NUR ---
Nutrition Follow-up: NPO for arteriogram. Pt reports that she has not been able to eat much 2/2 procedures and hasn't received dialysis. Diet: NPO PO intake: 50% x 2 meals yesterday Wt: 167# Last BM: 04/11 Labs reviewed Meds reviewed When medically feasible, rec ADAT to renal carb consistent with Nepro. RD following.
--- NOTE | 2019-04-12 11:59 | NUR ---
I have reviewed this patient and I concur with the Shift Assessment completed by the Licensed Practical Nurse today this shift.
[2019-04-12] MEDS ORDERED: XARELTO15 MG PO (12:40)
[2019-04-12] MEDS ORDERED: COREG 3.1253.125 MG PO (12:44)
--- NOTE | 2019-04-12 14:36 | MORECARE ---
CASE MANAGEMENT DISCHARGE SUMMARY PATIENT: ARLYN ROLLE UNIT: [id number] ADM DATE: 04/10/19 AGE: 64 : 57 SEX: F ROOM/BED: D.2102 AUTHOR: IVAN TADEO PHYSICIAN: REFERRING PHYSICIAN: GEOVANY CLARK MD DATE OF SERVICE: 04/12/19 Discharge Plan Patient Name: ARLYN ROLLE Facility: [facility]:[place] : 1955 Planned Disposition: Home Anticipated Discharge Date: 04/12/19 Discharge Date: Expected LOS: 2 Initial Reviewer: [email or web address] Initial Review Date: 04/12/2019 Generated: 04/12/19 3:36 pm DCPIA - Discharge Planning Initial Assessment Updated by [email or web address]: Fransico Bejarano on 04/12/19 2:33 pm * Is the patient Alert and Oriented? Yes * How many steps to enter\exit or inside your home? * PCP DR. SIL HINTON AGUAS BUENAS * Pharmacy [facility] IN [place] * Preadmission Environment Home with Family * ADLs Independent * Equipment Cane Wheelchair * Other Equipment NO MEDICAL EQUIPMENT PROVIDER PREFERENCE * List name and contact numbers for known caregivers / representatives who currently or will assist patient after discharge: BALWINDER NGUYEN DTR, * Verbal permission to speak to the caregivers and representatives has been obtained from the patient. Yes * Community resources currently utilized Other * Please name any agencies selected above. [facility]PATIENT DIALYSIS, [facility], [facility], [facility], [facility] * Additional services required to return to the preadmission environment? No * Can the patient safely return to the preadmission environment? Yes * Has this patient been hospitalized within the prior 30 days at any hospital? No Coverage Notice Reviewer: [email or web address] - [place] Notice Issued Date-Time: 04/10/2019 9:25 Notice Type: Medicare Outpatient Observation Notice Notice Delivered To: Patient Relationship to Patient: Self Android Framework Developer Name: Delivery Method: HAND - Hand Delivered Winnie Days: Prior Verbal Notification: Recipient Understood Notice: Yes Recipient Signature: Yes Med Rec Note Co-signed by Attending: Coverage Notice Comment: EVANGELISTA DISCUSSED IN PRESENCE OF SHANNAN BRITT AFTER VERBAL CONSENT OBTAINED. Patient Name: ARLYN ROLLE Page [phone] at 1436 All edits/amendments must be made on the electronic document DICTATION DATE: 04/12/191435 EPIC CUPID SPECIALISTS: NITO 04/12/191435 RPT#: [id number] DC DATE: STATUS: ADM IN [facility] [address] [place] [address] END OF REPORT
--- NOTE | 2019-04-12 14:44 | MORECARE ---
CASE MANAGEMENT DISCHARGE SUMMARY PATIENT: ARLYN ROLLE UNIT: [id number] ADM DATE: 04/10/19 AGE: 64 : 57 SEX: F ROOM/BED: D.2103 AUTHOR: IVAN TADEO PHYSICIAN: REFERRING PHYSICIAN: GEOVANY HERNANDES MD DATE OF SERVICE: 04/12/19 Discharge Plan Patient Name: ARLYN ROLLE Facility: [facility]:[place] : 1955 Planned Disposition: Home Anticipated Discharge Date: 04/12/19 Discharge Date: Expected LOS: 2 Initial Reviewer: [email or web address] Initial Review Date: 04/12/2019 Generated: 04/12/19 3:43 pm Comments DCP- Discharge Planning Updated by [email or web address]: Fransico Bejarano on 04/12/19 1:[address] Patient Name: ARLYN ROLLE Admission Status: Elective Accout number: [id number] Admission Date: 04-10-2019 : 1955 Admission Diagnosis: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 PT REPORTS LIVING AT HOME INDEPENDENTLY WITH HER ADULT DAUGHTER. PT HAS CANE, WHEELCHAIR AND LEFT LOWER LEG PROSTESIS. PT HAS NO MEDICAL EQUIPMENT PROVIDER PREFERENCE. PT HAS NO OUTSIDE SERVICES ASSISTING IN THE HOME. PT GOES TO DIALYSIS AT [facility], [facility], [facility], [facility]. CM DISCUSSED AVAILABILITY OF HOME HEALTH, REHAB SERVICES AND MEDICAL EQUIPMENT. PT DENIES DISCHARGE NEEDS, REPORTS SHE NEEDS [facility] TRANSP[facility] TO PICK SHE AND HER DAUGHTER UP FOR DISCHARGE HOME TODAY. 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 CM CALLED MEDICAID TRANSPORTATION IN [facility], , SPOKE TO KEITH WHO ARRANGED TRANSPORT FOR 3PM TODAY FOR BOTH PT AND DAUGHTER. CM NOTIFIED PICKLING SOLUTION MAKER NURSE AND BEDSIDE NURSE. CM NOTIFIED PT WHO REPORTS HAVING FUNDS FOR TRANSPORT ($30). MEDICAID TRANSPORT TO CALL [facility] 2 WHEN DOWNSTAIRS FOR TRANSPORTATION HOME. Grinding Machine Tender: Fransico Bejarano DCPIA - Discharge Planning Initial Assessment Updated by [email or web address]: Fransico Carlee on 04/12/19 2:33 pm * Is the patient Alert and Oriented? Yes * How many steps to enter\exit or inside your home? * PCP STEPHENIE DEE * Pharmacy [facility] IN [place] * Preadmission Environment Home with Family * ADLs Independent * Equipment Cane Wheelchair * Other Equipment NO MEDICAL EQUIPMENT PROVIDER PREFERENCE * List name and contact numbers for known caregivers / representatives who currently or will assist patient after discharge: BALWINDER NGUYEN DTR, * Verbal permission to speak to the caregivers and representatives has been obtained from the patient. Yes * Community resources currently utilized Other * Please name any agencies selected above. OUTPATIENT DIALYSIS, [facility], [facility], [facility], [facility] * Additional services required to return to the preadmission environment? No * Can the patient safely return to the preadmission environment? Yes * Has this patient been hospitalized within the prior 30 days at any hospital? No Coverage Notice Reviewer: [email or web address] Porfirio Ortez Notice Issued Date-Time: 04/10/2019 9:25 Notice Type: Medicare Outpatient Observation Notice Notice Delivered To: Patient Relationship to Patient: Self Construction Trades Contractor Name: Delivery Method: HAND - Hand Delivered Winnie Days: Prior Verbal Notification: Recipient Understood Notice: Yes Recipient Signature: Yes Med Rec Note Co-signed by Attending: Coverage Notice Comment: EVANGELISTA DISCUSSED IN PRESENCE OF SHANNAN BRITT AFTER VERBAL CONSENT OBTAINED. Last DP export: 04/12/19 1:36 p Patient Name: ARLYN ROLLE Page [phone] at 1444 All edits/amendments must be made on the electronic document DICTATION DATE: 04/12/19 1443 MARKET INTELLIGENCE CONSULTANT: NITO 04/12/19 1443 RPT#: [id number] DC DATE: STATUS: ADM IN [facility] [address] [place] [address] END OF REPORT
--- NOTE | 2019-04-12 15:00 | NUR ---
RETURNED FROM DIALYSIS AT 1435. DISCHARGE ISTRUCTIONS REVIEWED WITH PT AND HER FAMILY MEMBER. VERBALIZED UNDERSTANDING WITH NO QUESTIONS. SL REMOVED WITH CATH TIP INTACT. LEFT FLOOR VIA W/C WITH ALL PERSONAL BELONGINGS AND LEFT FACILITY VIA [email or web address] BUS WITH HER FAMILY MEMBER.
--- NOTE | 2019-04-25 15:10 | OP ---
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 PROCEDURE: 1. A 4-Sol[place] Islander sheath placement under fluoroscopic guidance. 2. Immediate surgeon interpretation of fluoroscopic images. 3. Aborted fistulogram. SURGEON: Cornelius Maldonado MD PAINTER PLATE: None. BLOOD LOSS: Minimal. ANESTHESIA: General. OPERATIVE PROCEDURE: The extremity was sterilely prepped and draped. Under fluoroscopic guidance, I punctured the graft. The entire graft was heavily calcified. A microwire was placed. Over the microwire, a microdilator introducer was placed. Over this, a 4-[place] Islander sheath was placed. A J wire was placed through the sheath. Sheath was removed. I tried to place a 6-[place] Islander sheath. However, due to very heavily calcified graft, I was unable to advance the sheath. The procedure was abandoned. I did not think that endovascular techniques would allow us to open up the graft. Nor do I think that a cutdown would be in her best interest either. I think that we need to abandon this graft and bring her back at another time to placement of the graft. The patient was then extubated and conveyed to post-anesthesia care unit. TRANSINT:[id number] Voice Confirmation ID: [id number] DOCUMENT ID: [id number] 04/25/2019 Edited for deckhand sponge boat error, dmm. 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
--- NOTE | 2019-04-25 15:10 | OP ---
PATIENT NAME: ARLYN ROLLE MEDICAL RECORD: [id number] :57 LOCATION:D. D.2102 ADMISSION DATE:04/10/19 SURGEON: CORNELIUS MALDONADO MD DATE OF OPERATION: 04/10/2019 PREOPERATIVE DIAGNOSIS: End-stage renal disease without functioning access for hemodialysis. POSTOPERATIVE DIAGNOSES: End-stage renal disease without functioning access for hemodialysis. PROCEDURE: 1. Insertion of right internal jugular HemoSplit catheter (tunneled cuffed dual-lumen hemodialysis catheter) under fluoroscopic guidance. 2. Immediate surgeon interpretation of the fluoroscopic images. SURGEON: Cornelius Maldonado MD PILOT TEACHER: None. BLOOD LOSS: Minimal. ANESTHESIA: Please see the anesthesia sheet. COMPLICATIONS: None. No radiologist was present for this procedure. Static fluoroscopic images were obtained and are kept in the PACS system. The surgeon interpretation of the radiographic image is dictated within the body of this operative note. OPERATIVE COURSE: The patient was conveyed to the operating room electively on 04/10/2019. Anesthesia was induced by the anesthesia staff. The right neck and right chest were sterilely prepped and draped. Under ultrasonographic guidance, I percutaneously accessed the right internal jugular vein in an antegrade fashion. A guidewire passed easily. This was visualized under fluoroscopy. A small skin miguel angel was accomplished around the wire. Another skin miguel angel was accomplished in the right anterior superior infraclavicular chest. I tunneled a 19-cm HemoSplit catheter from the chest incision to the neck incision. Over the wire, I dilated with dilators. A dilator sheath was then advanced over the wire. The dilator and wire were removed. The tips of the HemoSplit catheter were advanced. The Peel-Away sheath was then peeled away. I then pulled back on the flange of the HemoSplit catheter to seat the cuff into the subcutaneous tissues. The neck incision was closed with interrupted intracuticular 3-0 Vicryls. The flange of the HemoSplit catheter was sutured to the underlying skin with 2-0 nylons. Both lumens flushed easily and aspirated dark, nonpulsatile blood. I then flushed both lumens of the HemoSplit catheter with the appropriate amount of concentrated heparin. Sterile dressings were applied. TRANSINT:[id number] Voice Confirmation ID: [id number] DOCUMENT ID: [id number] OPERATIVE REPORT [id number] ARLYN ROLLE, CORNELIUS KERR at 1510 CC: [id number] DICTATION DATE: 04/24/191908 COOK DINNER: 04/25/19 0234 DIS IN 04/12/19 [place] [id number] [place] [id number]
== END 2019-04-12 15:03 | disposition home or self-care (01) | DRG 314 ==
LOC: OBSVTIME → UNDOADMOB 10:31 → D.M2 10:31 → D.OPS 10:31 → OBSVTIME 10:32 → D.M2 10:57 → EDSTATUS 04-10 12:00 → D.M2 04-10 15:34
PROVIDERS: Internal Medicine Nephrology; Radiology Diagnostic Radiology; Surgery; ADMIT Internal Medicine Nephrology; ATTEND Internal Medicine Nephrology
PROC: B5131ZA Fluoroscopy of Right Jugular Veins using Low Osmolar Contrast, Guidance (ICD-10-PCS; 2019-04-10)
PROC: 5A1D70Z Performance of Urinary Filtration, Intermittent, Less than 6 Hours Per Day (ICD-10-PCS; 2019-04-10)
PROC: 05HM33Z Insertion of Infusion Device into Right Internal Jugular Vein, Percutaneous Approach (ICD-10-PCS; principal; 2019-04-10 20:02)
PROC: B51W1ZZ Fluoroscopy of Dialysis Shunt/Fistula using Low Osmolar Contrast (ICD-10-PCS; 2019-04-11)
DX: T82.868A Thrombosis due to vascular prosthetic devices, implants and grafts, initial encounter (principal); N18.6 End stage renal disease; I13.2 Hypertensive heart and chronic kidney disease with heart failure and with stage 5 chronic kidney disease, or end stage renal disease; E11.52 Type 2 diabetes mellitus with diabetic peripheral angiopathy with gangrene; I96 Gangrene, not elsewhere classified; L03.115 Cellulitis of right lower limb; M86.171 Other acute osteomyelitis, right ankle and foot; Y83.9 Surgical procedure, unspecified as the cause of abnormal reaction of the patient, or of later complication, without mention of misadventure at the time of the procedure; E11.22 Type 2 diabetes mellitus with diabetic chronic kidney disease; I50.9 Heart failure, unspecified; Z99.2 Dependence on renal dialysis; E11.40 Type 2 diabetes mellitus with diabetic neuropathy, unspecified; I25.5 Ischemic cardiomyopathy; I25.10 Atherosclerotic heart disease of native coronary artery without angina pectoris; I48.0 Paroxysmal atrial fibrillation; Z89.512 Acquired absence of left leg below knee; E11.69 Type 2 diabetes mellitus with other specified complication

== ENCOUNTER 2019-04-19 05:45 | Outpatient (CLI) | payer MEDICARE ==
[~2019-04-19] VITALS: Ht 165.1 cm; Wt 75.9 kg
--- NOTE | ~2019-04-19 | HEMODYNAMI ---
PATIENT:ARLYN ROLLE MEDICAL RECORD: [id number] : 57 LOCATION:[facility] ADMISSION DATE: 04/19/19 Generatedon:04/19/201912:16 Patient name: ARLYN ROLLE Patient #: [id number] SSN: : 1955 Date of study: 04/19/2019 Page: Of Hemodynamic Procedure Report Patient Data Patient Demographics Procedure consent was obtained First Name: ARLYN Gender: Female Last Name: SARIAH : 1955 [facility] Initial: REGGIE Age: 64 year(s) Patient #: [id number] Race: Black Additional ID: [id number] Contact details Address: [address] [place] [address] State: [place] City: [place] Zip code: [address] Past Medical History Allergies Allergen Reaction Date Comments Reported Other allergy 10/27/2016 Peanuts Other allergy 04/19/2019 peanut Admission Admission Data Admission Date: 04/19/2019 Admission Time: 5:45 Procedure Procedure Types Cath Procedure Peripheral Cath Diagnostic Procedure Abd/Extremity Extremities Bilat Lower Extremity Procedure Description Procedure Date Procedure Date: 04/19/2019 Procedure Start Time: 8:47 Procedure Staff Name Function Pee Mills MD Performing Physician Elle Garcia RT Monitor Delores Ashby RN Nurse Nyla García RN Nurse Papo Salazar RT Scrub Procedure Data Cath Procedure Fluoroscopy Diagnostic fluoroscopy Total fluoroscopy Time: 0 time: 0 min min Diagnostic fluoroscopy Total fluoroscopy dose: 257 dose: 257 mGy mGy Contrast Material Contrast Material Type Amount (ml) Isovue 300 155 Entry Location Entry Primary Successful Side Size Upsize Upsize Entry Closure Succes sful Closure Location (Fr) 1 (Fr) 2 (Fr) Remarks Device Remarks Femoral Left artery Procedure Medications Medication Administration Route Dosage Heparin Flush Bag added to field 2 bags (1000units/500ml NS) Lidocaine 1% added to field 20 Versed I.V. 1 mg Fentanyl I.V. 50 mcg Fentanyl I.V. 25 mcg Versed I.V. 0.5 mg Benadryl I.V. 25 mg Fentanyl I.V. 50 mcg Versed I.V. 1 mg Heparin Bolus I.V. 5000 units Versed I.V. 0.5 mg Fentanyl I.V. 25 mcg Nitroglycerin IC/IA I.A. 300 mcg Versed I.V. 0.5 mg Fentanyl I.V. 25 mcg Hemodynamics Rest Heart Rate: 84 (bpm) Snapshots Pre Cath Intra NCS Post Cath Vital Signs Time Heart Resp SPO2 etCO2 NIBP (mmHg) Rhythm Pain Sedation Rate (ipm) (%) (mmHg) Status Level (bpm) 8:43:07 106 33 21.7 128/71(103) NSR 0 (11) 10(A) , No pain 8:47:19 96 28 100 19.4 130/62(114) NSR 0 (11) 10(A) , No pain 8:51:33 86 18 28.4 120/59(94) NSR 0 (11) 8(A) , No pain 8:56:00 90 17 96 32.2 118/65(96) NSR 0 (11) 8(A) , No pain 9:00:07 90 18 27.7 110/64(85) NSR 0 (11) 8(A) , No pain 9:04:13 85 12 23.9 119/61(86) NSR 0 (11) 8(A) , No pain 9:08:23 78 22 98 23.2 121/57(94) NSR 0 (11) 8(A) , No pain 9:12:33 82 8 98 0 114/60(96) NSR 0 (11) 8(A) , No pain 9:16:43 9 99 0 105/52(74) NSR 0 (11) 8(A) , No pain 9:20:49 81 11 98 0 118/59(85) NSR 0 (11) 8(A) , No pain 9:24:57 73 12 99 11.9 118/64(97) NSR 0 (11) 8(A) , No pain 9:29:08 84 12 99 0.7 119/55(89) NSR 0 (11) 8(A) , No pain 9:33:16 82 12 100 17.2 116/61(90) NSR 0 (11) 8(A) , No pain 9:37:26 96 19 98 21.7 127/55(102) NSR 0 (11) 8(A) , No pain 9:41:34 89 15 99 8.9 133/72(105) NSR 0 (11) 8(A) , No pain 9:45:44 88 11 99 14.9 139/74(103) NSR 0 (11) 8(A) , No pain 9:49:56 91 15 98 12.7 129/75(100) NSR 0 (11) 8(A) , No pain 9:54:10 78 8 97 28.4 115/60(86) NSR 0 (11) 8(A) , No pain 9:58:16 82 9 97 25.4 110/67(91) NSR 0 (11) 8(A) , No pain 10:02:22 73 9 97 29.2 101/60(81) NSR 0 (11) 8(A) , No pain 10:06:25 74 8 98 28.4 108/56(76) NSR 0 (11) 8(A) , No pain 10:10:31 70 9 98 27.7 104/56(85) NSR 0 (11) 8(A) , No pain 10:14:37 72 9 97 27.7 99/58(85) NSR 0 (11) 8(A) , No pain 10:18:39 70 8 98 28.4 99/60(88) NSR 0 (11) 8(A) , No pain 10:22:42 71 9 98 26.9 101/58(88) NSR 0 (11) 8(A) , No pain 10:26:44 72 8 97 26.2 118/61(88) NSR 0 (11) 8(A) , No pain 10:30:52 67 11 98 26.2 127/66(96) NSR 0 (11) 8(A) , No pain 10:35:02 72 11 97 16.4 122/68(94) NSR 0 (11) 8(A) , No pain 10:39:12 73 8 97 20.2 117/62(94) NSR 0 (11) 8(A) , No pain 10:43:22 70 8 97 16.5 107/58(93) NSR 0 (11) 8(A) , No pain 10:47:27 70 7 96 17.2 102/57(81) NSR 0 (11) 8(A) , No pain 10:51:33 73 7 97 14.9 104/54(86) NSR 0 (11) 8(A) , No pain 10:55:37 72 8 96 16.4 103/59(93) NSR 0 (11) 8(A) , No pain 10:59:41 67 8 96 16.4 106/59(90) NSR 0 (11) 8(A) , No pain 11:03:47 64 9 95 12.7 105/57(88) NSR 0 (11) 8(A) , No pain 11:07:50 71 8 95 8.9 109/58(91) NSR 0 (11) 8(A) , No pain 11:11:52 74 9 97 23.2 125/70(109) NSR 0 (11) 8(A) , No pain 11:16:00 71 23 98 26.2 130/71(89) NSR 0 (11) 8(A) , No pain 11:20:10 69 10 98 21 126/70(101) NSR 0 (11) 8(A) , No pain 11:24:22 75 13 98 23.9 123/63(102) NSR 0 (11) 8(A) , No pain 11:28:29 74 8 100 24.7 127/71(106) NSR 0 (11) 8(A) , No pain 11:32:37 75 9 98 25.4 124/71(95) NSR 0 (11) 8(A) , No pain 11:36:43 84 9 99 18 132/75(106) NSR 0 (11) 8(A) , No pain 11:40:55 77 12 98 24 127/71(99) NSR 0 (11) 8(A) , No pain 11:45:05 78 16 99 26.2 122/66(104) NSR 0 (11) 8(A) , No pain 11:49:13 79 17 98 28.5 127/69(106) NSR 0 (11) 8(A) , No pain 11:53:18 89 22 96 30 134/77(99) NSR 0 (11) 8(A) , No pain 11:57:28 79 9 98 30.7 133/76(106) NSR 0 (11) 8(A) , No pain 12:01:38 92 6 96 30.7 135/76(105) NSR 0 (11) 8(A) , No pain 12:05:48 81 12 97 30.7 141/75(117) NSR 0 (11) 8(A) , No pain 12:10:02 91 9 98 30 135/71(98) NSR 0 (11) 8(A) , No pain 12:14:14 91 11 98 31.4 134/71(93) NSR 0 (11) 8(A) , No pain Medications Time Medication Route Dose Verified Delivered Reason Notes Effectiveness by by 8:47:31 Heparin Flush added 2 Pee Glasgow used for Bag to bags Lina Mills MD procedure (1000units/500ml field KERR NS) 8:47:43 Lidocaine 1% added 20ml Pee Glasgow for local to vial Lina Mills MD anesthetic field KERR 8:47:54 Versed I.V. 1 mg Pee Redmond for sedation Ricky iMlls RN, MD 8:48:06 Fentanyl I.V. 50 Pee Redmond for sedation mcg Ricky Mills RN, MD 8:48:19 Benadryl I.V. 25 mg Ricky Solorzano RN, MD 9:12:00 Fentanyl I.V. 25 Pee Redmond for sedation mcg Ricky Mills RN, MD 9:12:08 Versed I.V. 0.5 Pee Redmond for sedation mg Ricky Mills RN, MD 9:49:10 Fentanyl I.V. 50 Pee Redmond for sedation mcg Ricky Mills RN, MD 9:49:23 Versed I.V. 1 mg Pee Redmond for sedation Ricky Mills RN, MD 10:36:20 Heparin Bolus I.V. 5000 Pee Estrella for units Isma Mills RN, MD 11:16:38 Versed I.V. 0.5 Pee Estrella for sedation mg Isma Mills RN, MD 11:16:47 Fentanyl I.V. 25 Pee Estrlela for sedation mcg Isma Mills RN, MD 11:24:03 Nitroglycerin I.A. 300 Pee Glasgow for IC/IA mcg Lina Mills MD vasodilation MD 11:34:23 Versed I.V. 0.5 Pee Estrella for sedation mg Isma Mills RN, MD 11:34:32 Fentanyl I.V. 25 Pee Estrella for sedation mcg Isma Mills RN, MD Procedure Log Time Note 8:28:46 Delores Ashby RN sent for patient. Start room use. 8:28:55 Time tracking: Regular hours (M-F 7:00 - 5:00) 8:29:01 Plan of Care:Hemodynamics will remain stable., Cardiac rhythm will remain stable., Comfort level will be maintained., Respiratory function will remain adequate., Patient/ family verbilizes understanding of procedure., Procedure tolerated without complication., Recovers from procedure without complications.. 8:29:07 Patient received from Outpatients to IR Alert and oriented. Tansferred to table in Supine position. 8:29:11 Signed procedure consent form obtained from patient. 8:29:14 Correct patient and procedure confirmed by team. 8:29:14 ECG and BP/O2 sat monitors applied to patient. 8:29:16 Full Disclosure recording started 8:29:16 - 8:29:20 H&P Date Dictated: 04/19/2019 H&P Addendum completed by physician on day of procedure. (MUST COMPLETE FOR ALL OUTPATIENTS). 8:29:21 Pre-procedure instructions explained to patient. 8:29:22 Pre-op teaching completed and patient verbalized understanding. 8:29:27 Family in patients room. 8:29:28 Patient NPO since Midnight. 8:29:34 Use device set IR Diagnostic 8:29:35 ACIST Syringe (19614) opened to sterile field. 8:29:35 ACIST Hand Control (92130) opened to sterile field. 8:29:36 ACIST Manifold (59851) opened to sterile field. 8:29:36 Bag Decanter () opened to sterile field. 8:29:36 Sterile Angiographic Pack opened to sterile field. 8:29:37 Tegaderm 4 x 4 (1626W) opened to sterile field. 8:41:56 Vital chart was started 8:44:15 Previous problem with sedation/anesthesia? No ? 8:44:28 Sleep apnea? No 8:44:31 Deviated septum? No 8:44:33 Opens mouth fully? No 8:44:37 Sticks out tongue? Yes 8:44:42 Airway obstruction? No ? 8:44:52 Dentures? No ? 8:44:53 Right abdomen area was prepped with chlora-prep and draped in sterile fashion 8:45:02 Patient allergic to Other allergypeanut 8:45:09 ----Pre-sedation anethsthesia assessment.---- 8:45:11 Right abdomen site verified by team. 8:45:24 Sedation plan: IV Moderate Sedation Medication:Versed, Fentanyl, Lidocaine 8:45:25 Snore? No 8:45:30 Is the patient allergic to Iodine/contrast media? No. 8:45:31 IV patent on arrival in left forearm with 0.9% NaCl at [facility]. 8:45:38 [id number] 8FR CATH DRAIN TRAY opened to sterile field. 8:45:40 Is patient on blood thinner?Yes 8:45:48 ACC The patient was administered the following blood thiners within the last 24 hours: ACCAspirin 8:45:56 Alarms reviewed. 8:45:57 Sharps counted by scrub and verified. 8:46:01 Physician arrived 8:46:01 Patient diabetic? Yes. 8:46:02 --------ALL STOP TIME OUT------ 8:46:04 Final Timeout: patient, procedure, and site verified with staff and physician. All members of the team are in agreement. 8:46:05 Procedure started. 8:47:31 Heparin Flush Bag (1000units/500ml NS) 2 bags added to field was administered by Pee Mills MD; used for procedure; Verbal order read back and verified. 8:47:43 Lidocaine 1% 20ml vial added to field was administered by Pee Mills MD; for local anesthetic; Verbal order read back and verified. 8:47:54 Versed 1 mg I.V. was administered by Nyla García RN; for sedation; Verbal order read back and verified. 8:47:55 Local anesthetic to Abdominal area with Lidocaine 1% by Pee Mills MD.INITIAL ACCESS ONLY 8:48:06 Fentanyl 50 mcg I.V. was administered by Nyla García RN; for sedation ; Verbal order read back and verified. 8:48:19 Benadryl 25 mg I.V. was administered by Nyla García RN; ; Verbal orde r read back and verified. 8:50:16 The cath is placed for the paracentesis in the right abd. 8:50:24 GLIDE WIRE ANGLE 180cm (DI9445) opened to sterile field. 8:50:33 Use device set IR Diagnostic 8:50:36 ACIST Syringe (74003) opened to sterile field. 8:50:38 ACIST Hand Control (85511) opened to sterile field. 8:50:39 ACIST Manifold (30789) opened to sterile field. 8:50:40 Bag Decanter (2002S) opened to sterile field. 8:50:40 Sterile Angiographic Pack opened to sterile field. 8:50:41 Tegaderm 4 x 4 (1626W) opened to sterile field. 8:53:17 Baseline sample Acquired. 9:04:57 GLIDE CATHETER 5FR ANGLED 65cm (CG507) opened to sterile field. 9:04:58 TUBING Contrast Injection High Pressure (VNM199I) opened to sterile field. 9:05:00 HENDERSON 260 wire (P13781) opened to sterile field. 9:05:01 Angiodynamics Omniflush 5Fr 65cm (08521137) opened to sterile field. 9:05:51 DOC .035 wire (Y43096) opened to sterile field. 9:06:04 SHEATH 5FR Chetek (HUQ683) opened to sterile field. 9:06:24 Micropuncture VSI 4FR kit opened to sterile field. 9:12:00 Fentanyl 25 mcg I.V. was administered by Nyla García RN; for sedation ; Verbal order read back and verified. 9:12:08 Versed 0.5 mg I.V. was administered by Nyla García RN; for sedation; Verbal order read back and verified. 9:33:17 10 liters are drainded. 9:33:52 Everthing is removed and dermabond is applied. 9:49:10 Fentanyl 50 mcg I.V. was administered by Nyla García RN; for sedation ; Verbal order read back and verified. 9:49:19 Local anesthetic to left femerol artery with Lidocaine 1% by Pee Mills MD.ADDITIONAL ACCESS 9:49:23 Versed 1 mg I.V. was administered by Nyla García RN; for sedation; Verbal order read back and verified. 9:55:52 Access obtained with 4Fr micropunture. 9:57:04 A 5 south sudanese sheath was inserted into the Left Femoral artery 9:57:44 doc wire advanced. 10:00:13 The 5 south sudanese omni flush is advanced. 10:02:40 Abdominal angio is preformed. 10:05:20 The wire is advanced and the omni is exchange for glidecath. 10:05:47 An injection is made down the right leg. 10:13:16 CXI Catheter 90cm (A33940) opened to sterile field. 10:13:18 GLIDE WIRE MERIT Angled 260cm ([id number]) opened to sterile field. 10:13:41 SHEATH 6FR Destination (RSR01) opened to sterile field. 10:16:35 Trailblazer 0.035 90cm catheter (ASC-035-090) opened to sterile field. 10:18:50 ROADRUNNER .035 260 glide wire (D74289) opened to sterile field. 10:20:47 An attempt is made to pass the cxi catheter over the 260cm glidewire. 10:21:18 The cxi if removed and replaced with a trailblazer. 10:21:56 The roadrunner exchange wire is used to try to navigate the right femeral artery. 10:26:39 Navicross Support Straight .035 150cm catheter (HJ50318) opened to sterile field. 10:27:02 glideWire advanced across lesion. 10:27:52 the Navicross is advanced. 10:28:48 Glidewire is removed and the roadrunner wire is advanced. 10:32:01 The glidewire is removed and the henderson wire is advanced. 10:32:54 The catheter is removed. 10:33:15 The 5 sheath is exchanged for the 6 south sudanese destination. 10:35:19 The Navicross is readvanced over the henderson. 10:36:20 Heparin Bolus 5000 units I.V. was administered by Delores Ashby RN; for anticoagulation; Verbal order read back and verified. 10:37:00 the henderson is exchanged for the roadrunner wire. 10:39:19 CHOICE PT Extra Support J 300cm guide wire ([id number]) opened to steril e field. 10:39:20 INFLATOR BasixTOUCH (AH3299) opened to sterile field. 10:39:57 The roadrunner is exchanged for the glidewire. 10:48:00 Inflate balloon Inflation number: 1 A Shannon Plus 2 x 4 x 130 Balloon ([id number]) was prepped and advanced across the Proximal Superficial Femoral, Right , then inflated to 0 LAURA for 0:00 (min:sec) . 10:51:42 Inflate balloon Inflation number: 1 A Shannon Plus 3 x 6 x 130 Balloon ([id number]) was prepped and advanced across the Proximal Superficial Femoral, Right1 , then inflated to 0 LAURA for 0:00 (min:sec) . 10:53:39 SPIDER EMBOLIC PROTECTION DEVICE 6MM ([id number]) opened to sterile field. 10:55:08 The pt choice wire is removed and the spider wire is advanced. 10:56:00 Hawkone Medium Atherectomy System (H1-M) opened to sterile field. 11:01:59 A pass is made with the hawk at the bifircation of the right femeral artery into the proximal sfa. 11:07:40 The hawk is removed. 11:08:23 An in.pact admiral is advanced over the spider wire. 11:10:29 Inflate balloon Inflation number: 1 A IN.PACT Admiral 6 x 40 x 130 DCB Balloon ([id number]) was prepped and advanced across the Proximal Superficial Femoral, Right2 , then inflated to 0 LAURA for 0:00 (min:sec) . 11:16:23 An injection is made in the right common femeral artery. 11:16:32 CXI SUPPORT .035 135 CM STR catheter (V05453) opened to sterile field. 11:16:38 Versed 0.5 mg I.V. was administered by Delores Ashby RN; for sedation; Verbal order read back and verified. 11:16:47 Fentanyl 25 mcg I.V. was administered by Delores Ashby RN; for sedation; Verbal order read back and verified. 11:19:14 an injection is made thru the cxi at the proximal popliteal artery on the right. 11:24:03 Nitroglycerin IC/IA 300 mcg I.A. was administered by Pee Mills MD; fo r vasodilation; Verbal order read back and verified. 11:25:06 The pt choice wire is used to manuever down the trifircation on the right. 11:28:07 The pt choice is removed and the nitrex wire is used. 11:28:30 NITINOL .014 300cm wire (D277801) opened to sterile field. 11:29:20 CXI SUPPORT .018 150CM STR catheter (T35288) opened to sterile field. 11:33:48 An injection is made at the trifircation on the right leg. 11:34:23 Versed 0.5 mg I.V. was administered by Delores Ashby RN; for sedation; Verbal order read back and verified. 11:34:32 Fentanyl 25 mcg I.V. was administered by Delores Ashby RN; for sedation; Verbal order read back and verified. 11:36:42 GLIDE WIRE GT ANGLED 45 DEGREE .018 (RG*[id number]) opened to sterile field. 11:39:28 SHEATH 6FR Chetek (CBF512) opened to sterile field. 11:43:56 Another injection in made to visualize the distal right leg. 11:54:13 The destination sheath is exchanged for a new 6french short sheath. 11:54:41 EXOSEAL 6Fr (EX600) opened to sterile field. 11:56:04 The exoseal is deployed. 11:59:40 3-0 Vicryl Single Pack YRG262A opened to sterile field. 12:01:34 A 3.o vicryl stitch is made to the right abdomen after the right abdome n was rescrubbed with chlora prep and drapped with towels. 12:02:26 Dermabond is also used on the right abdomen. 12:02:46 Contrast amount:Isovue 300 155ml. 12:02:58 Fluoroscopy time 31.5 minutes. 12:03:07 Fluoroscopy dose: 257 mGy 12:03:07 Flurop Dose total: 257 12:03:57 Post-op/insertion site Left Femoral artery dressed using a 4 x 4 and Tegaderm. 12:04:06 Post left femerol artery:stable 12:04:09 Post Procedure Pulses reassessed and unchanged 12:05:47 Procedure ended.(Physican Out) 12:07:15 Sharps counted by scrub and verified. 12:08:33 Post procedure instruction explained to patient.Patient verbalizes understanding. 12:08:34 Patient needs reinforcement of post procedure teaching. 12:08:42 Procedure and supply charges have been captured, reviewed, submitted an d are correct. 12:14:38 See physician's report for complete and final results. 12:14:45 Report given to Outpatients. 12:15:00 Vital chart was stopped 12:15:10 Patient transfered to Outpatients with Stretcher. Intervention Summary Intervention Notes Time ActionType Lesion and Equipment Used Action# Pressure Duration Attributes 10:48:00 Inflate Proximal Shannon Plus 2 1 0 00:00 balloon Superficial x 4 x 130 Femoral, Balloon Right ([id number]) 10:51:42 Inflate Proximal Shannon Plus 3 1 0 00:00 balloon Superficial x 6 x 130 Femoral, Balloon Right1 ([id number]) 11:10:29 Inflate Proximal IN.PACT 1 0 00:00 balloon Superficial Admiral 6 x 40 Femoral, x 130 DCB Right2 Balloon ([id number]) Device Usage Item Name Manufacture Quantity Catalog Number [facility] Minimal Lot# / Charge Number Stock Stock Serial# Code ACIST Syringe Acist Medical 2 23789 804549 808519 15191 8 20 (28259) Systems Inc ACIST Hand Acist Medical 2 05573 945433 449513 93765 7 5 Control (72255) Systems Inc ACIST Manifold Acist Medical 2 51758 487023 655120 06411 4 5 (27651) Systems Inc Bag Decanter Microtek 2 2001S 247977 78262 36144 4 5 (2001S) Medical Inc. Sterile Cardinal 2 [id number] 101669 98609 2 5 Angiographic Health Pack Tegaderm 4 x 4 3M 2 1626W 805392 805159 59255 3 5 (1626W) GLIDE WIRE Terumo 1 YH9962 583554 034878 11623 1 5 ANGLE 180cm (TA4902) YYSL-L-IPFKBMZP CareFusion 1 RS5605A 472624 55662 0 5 8FR CATH DRAIN TRAY GLIDE CATHETER Terumo 1 CG507 515933 96531 0 5 5FR ANGLED 65cm (CG507) TUBING Contrast [facility] Medical 1 ODI001G 055101 110484 62951 0 5 Injection High Pressure (YLF273L) HENDERSON 260 wire [employer] [facility] 1 K32142 832998 11467 14530 3 5 1533256 (I73826) Angiodynamics Angiodynamics 1 30217689 322910 064080 04022 5 5 Omniflush 5Fr 65cm (09058688) DOC .035 wire [employer] 1 F86741 773508 55008 8 5 (M92530) SHEATH 5FR Terumo 1 RRR779 815021 929168 45409 4 5 Chetek (VXO920) Micropuncture VSI VASCULAR 1 7266V 304915 98371 5 5 VSI 4FR kit SOLUTIONS CXI Catheter [facility] 1 H60055 558231 104565 39370 0 5 9978124 90cm (A17581) GLIDE WIRE [facility] 1 [id number] 154943 200379 18132 1 5 [id number] MERIT Angled 260cm ([id number]) SHEATH 6FR Terumo 1 RSR01 806492 23874 67442 8 5 Destination (RSR01) Trailblazer Medtronic 1 ASC-035-090 822444 7872083 02689 6 5 L828856 0.035 90cm catheter (ASC-035-090) ROADRUNNER .035 [employer] 1 U66251 021175 305529 07579 5 5 1231193 260 glide wire (I78435) Navicross Terumo 1 OK33739 295476 220034 07288 6 5 Support Straight .035 150cm catheter (SQ91992) CHOICE PT Extra Villanueva 1 [id number] 443281 687079 34518 7 5 29462091 Support J 300cm Scientific guide wire (1513168D1) INFLATOR [employer] Generation [employer] 1 UA1024 891765 089380 58580 9 5 BasixTOUCH (FR1720) Shannon Plus 2 Medtronic 1 [id number] 958717 883207 56809 6 5 x 4 x 130 Balloon ([id number]) Shannon Plus 3 Medtronic 1 [id number] 842582 3720389 28446 7 5 x 6 x 130 Balloon ([id number]) SPIDER EMBOLIC Medtronic 1 HRE1-EG-859-320 637495 73427 4 5 PROTECTION DEVICE 6MM ([id number]) Hawkone Medium Medtronic 1 H1-M 223371 26157 966 5 Atherectomy System (H1-M) IN.PACT Admiral Medtronic 1 [id number] 622204 689026 45332 5 5 [id number] 6 x 40 x 130 DCB Balloon ([id number]) CXI SUPPORT [employer] 1 U85695 728644 193783 79936 1 5 2229870 .035 135 CM STR catheter (U93663) NITINOL .014 Medtronic 1 T056785 103888 63807 8 5 300cm wire (B366850) CXI SUPPORT [employer] 1 Q72886 390272 477360 85642 4 5 4066779 .018 150CM STR catheter (A65559) GLIDE WIRE GT Terumo 1 [id number]*IF8935QA 647575 04560 9 5 ANGLED 45 DEGREE .018 ([id number]) SHEATH 6FR Terumo 1 DYD091 070263 565159 96698 9 40 Chetek (PKX126) EXOSEAL 6Fr Cardinal 1 EX600 065352 669817 42691 9 10 (EX600) Health 3-0 Vicryl Ethicon 1 LSY016L 197034 835202 43857 8 5 Single Pack HOD646Q Signature Audit [place] Stage Time Signature Unsigned Intra-Procedure 04/19/2019 Elle Garcia 12:16:22 PM RT(R) (CV) [facility] [address] [place] [address]
[~2019-04-19 05:45] MED LIST changes: +COREG 3.1253.125 MG PO; +XARELTO15 MG PO
[2019-04-19 06:21] LABS: BASOPHILS 0.1 % (0-2); EOSINOPHILS 1.6 % (0-7); HEMOGLOBIN 10.9 g/dL (12-16); IMMATURE GRANULOCYTES 0.4 % (0-5); LYMPHOCYTES 12.9 % (15-50); MCH 29.2 pg (26.0-34.0); MCV 88.5 fL (80.0-100.0); MONOCYTES 9.3 % (2-11); NEUTROPHILS 75.7 % (40-80); RBC 3.73 10x6/uL (4.00-5.40); WBC 8.1 10x3/uL (4.8-10.8)
[2019-04-19 06:23] LABS: PLATELET COUNT 144 10x3/uL (130-400)
[2019-04-19 06:43] LABS: ANION GAP 14.2 mmol/L (8-16); CALCIUM 9.8 mg/dL (8.5-10.1); CARBON DIOXIDE 28.4 mmol/L (21.0-32.0); POTASSIUM - SERUM 4.6 mmol/L (3.5-5.1)
[2019-04-19 07:04] LABS: APTT 33.1 SECONDS (22.8-39.4); INR 1.17 (0.85-1.17); PROTIME 14.4 SECONDS (11.6-15.0)
[2019-04-19 07:45] VITALS: BP 127/65; Ht 165.1 cm; Wt 75.9 kg
[2019-04-19] MEDS ORDERED: BAYER CHEWABLE81 MG (08:14)
== END 2019-04-19 15:50 | disposition home or self-care (01) ==
LOC: D.SP 05:45
PROVIDERS: General Practice; ATTEND Radiology Diagnostic Radiology
DX: R18.8 Other ascites (principal); I70.261 Atherosclerosis of native arteries of extremities with gangrene, right leg

== ENCOUNTER 2019-06-03 16:51 | Inpatient (IN) | payer MEDICARE ==
[2019-06-03] VITALS (27 sets, daily range): BP systolic 54–116; BP diastolic 28–69; Ht 165.1 cm; Wt 70.9 kg
[~2019-06-03] VITALS: Ht 165.1 cm; Wt 70.9 kg
[~2019-06-03 16:51] MED LIST changes: +BAYER CHEWABLE81 MG
--- NOTE | 2019-06-03 17:58 | NUR ---
PT HR BETTWEN 115-148. REPEAT EKG. EDP ADVISED.
[2019-06-03 18:47] LABS: HEMATOCRIT 34.8 % (36.0-48.0); HEMOGLOBIN 10.6 g/dL (12-16); MCH 28.3 pg (26.0-34.0); MCHC 30.5 g/dL (31.0-37.0); MCV 92.8 fL (80.0-100.0); MEAN PLATELET VOLUME 11.1 fL (7.4-10.4); PLATELET COUNT 135 10x3/uL (130-400); RBC 3.75 10x6/uL (4.00-5.40); RDW 18.4 % (11.5-14.5); WBC 28.2 10x3/uL (4.8-10.8)
[2019-06-03 18:55] LABS: APTT 34.7 SECONDS (22.8-39.4); INR 1.51 (0.85-1.17); PROTIME 17.6 SECONDS (11.6-15.0)
--- NOTE | 2019-06-03 18:55 | NUR ---
PT IN [place] SEE CODE BLUE SHEET
[2019-06-03 19:09] LABS: LYMPHOCYTES 3 % (15-50); MONOCYTES 2 % (2-11); NEUTROPHILS 95 % (40-80); PLATELET ESTIMATE NORMAL
--- NOTE | 2019-06-03 19:17 | NUR ---
PRIOR TO TRANSFER PT HAS HAD 2L NS BOLUS, AND CEFIPIME AND VANC IV ABX.
[2019-06-03 19:20] LABS: ALKALINE PHOSPHATASE 85 U/L (46-116); BILIRUBIN - TOTAL 0.84 mg/dL (0.2-1.3); CARBON DIOXIDE 14.9 mmol/L (21.0-32.0); CHLORIDE - SERUM 98 mmol/L (98-107); CKMB 2.1 U/L (0.0-3.6); CREATINE KINASE 63 UL (21-215); POTASSIUM - SERUM 3.6 mmol/L (3.5-5.1); PROTEIN - SERUM 8.2 g/dL (6.4-8.2); SODIUM 140 mmol/L (136-145); UREA NITROGEN 39 mg/dL (7-18)
[2019-06-03 19:31] LABS: CALC OSMOLALITY 285 mosm/kg (275-300); GLUCOSE 54 mg/dL (74-106); TROPONIN-I 0.151 ng/mL (0.000-0.060)
[2019-06-03 19:32] LABS: ALBUMIN 1.9 g/dL (3.4-5.0); eGFR NON AFRICAN AMERICAN 5 mL/min (90-120)
[2019-06-03 19:33] LABS: ALT (SGPT) 4 U/L (10-68)
--- NOTE | 2019-06-03 20:02 | NUR ---
FSBS 33 ADVISED EDP
--- NOTE | 2019-06-03 20:06 | NUR ---
PT IN [place] SEE CODE JENNA SHEET
--- NOTE | 2019-06-03 20:27 | NUR ---
FSBS 101 AT THIS TIMEL.
--- NOTE | 2019-06-03 20:36 | NUR ---
AMP OF D50 ADDED TO LITER OF D5W WITH 3 AMPS SODIUM BICARB PER EDP [facility].
--- NOTE | 2019-06-03 20:50 | NUR ---
FSBS 27 ADVISED EDP NEW ORDERS GIVEN FOR 2 AMPS D50
--- NOTE | 2019-06-03 21:25 | NUR ---
RECEIVED PT TO ICU ROOM 2303 FROM ER VIA STRETCHER TRANSPORTED WITH RT AND ER NURSE. PT ORALLY INTUBATED SEE RT FOR VENT SETTINGS. S/P CODE PLACED ON CM ALARMS ON AND AUDIBLE. ABD DISTENDED AND PER NURSE PT HAS LARGE ABDOMINAL HERNIA. PT HAS HAD AMPUTATION LEFT LOWER LEG AND PTS RIGHT FOOT NOTED WITH DRESSING. PT HAS WOUND COVERED WITH GAUZE REDRESSED/ PT HAS LEFT NECK 20 GAUGE IV NOT IN PLACE D/C WITH CATH INTACT. LEFT WRIST 20 GUAGE AND LEFT FOREARM SEE IV FLOWSHEET A DIALYSIS CATHETER TO CHEST WALL. BOTH PORTS CLAMPED
--- NOTE | 2019-06-03 21:33 | NUR ---
ACCUCHECK 95
--- NOTE | 2019-06-03 22:17 | NUR ---
ACCUCHECK 122
--- NOTE | 2019-06-03 22:23 | NUR ---
LAB HERE TO DRAW LAB
--- NOTE | 2019-06-03 22:30 | NUR ---
FAMILY AT BEDSIDE UPDATE GIVEN. PT HAS 4 CHILDREN 3 ADULT DAUGHTERS AND ONE SON. UPDATE GIVEN AND ALSO SPOKE TO THEM ABOUT DNR STATUS SINCE PT CODED TWICE NOW ON VENTILATOR AND LEVOPHED WILL CONTINUE TO MONITOR
[2019-06-04] VITALS (8 sets, daily range): BP systolic 59–88; BP diastolic 21–73
--- NOTE | 2019-06-04 00:15 | NUR ---
FAMILY AT BEDSIDE UPDATED QUESTIONS ANSWERED UPDATE GIVEN
--- NOTE | 2019-06-04 02:09 | NUR ---
DR CHADWICK INFORMED VIA PHONE THAT ALL 4 OF PATIENTS ADULT CHILDREN HAVE DECIDED THEY WANT TO TERMINALLY EXTUBATE. DR CHADWICK GAVE ORDERS FOR TERMINAL EXTUBATE TO CHARGE NURSE HÉCTOR STEWART
--- NOTE | 2019-06-04 02:15 | NUR ---
MORPHINE GIVEN PER TERMINAL EXTUBATE/ DNR ORDER FROM FARRUKH AND PT EXTUBATED PER RT
--- NOTE | 2019-06-04 02:16 | NUR ---
PTS FAMILY AT BEDSIDE AFTER EXTUBATION
--- NOTE | 2019-06-04 02:36 | NUR ---
PAGED DR CHADWICK TO INFORM OF PT . FARRUKH SPOKE WITH [facility] VIA PHONE WHO WILL COME TO PRONOUNCE
--- NOTE | 2019-06-04 02:40 | NUR ---
DR SEARS PRONOUNCED AT THIS TIME
--- NOTE | 2019-06-04 02:47 | NUR ---
DR CLARK NOTIFIED OF PT PASSING.
--- NOTE | 2019-06-04 03:04 | NUR ---
TUBE DRAW HELPER KYLE DONNELLY RETURNED CALL INFORMATION GIVEN. OK TO RELEASE THE BODY TO HOME.
--- NOTE | 2019-06-04 03:16 | NUR ---
DANNY NOTIFIED OF PT . PT WAS RULE OUT FOR DONATION SECONDARY TO [facility] RE[facility]ENCE NUMBER [id number] PER ENMA ROBERT
--- NOTE | 2019-06-04 04:10 | NUR ---
PER FAMILY CHOICE OF [facility] IN [place] [phone] NOTIFIED NELLY KRISHNA WITH HOME
--- NOTE | 2019-06-04 06:02 | NUR ---
HOME REP HERE TO SIGN WRITER LETTERER OR PAINTER PT BODY.
--- NOTE | 2019-06-04 09:39 | MORECARE ---
CASE MANAGEMENT DISCHARGE SUMMARY PATIENT: ARLYN ROLLE UNIT: [id number] ADM DATE: 06/03/19 AGE: 64 : 57 SEX: F ROOM/BED: D.2303 AUTHOR: IVAN TADEO PHYSICIAN: REFERRING PHYSICIAN: BIANKA CHADWICK MD DATE OF SERVICE: 06/04/19 Discharge Plan Patient Name: ARL[facility]OLLE [facility] [facility] 1955 Planned Disposition: Anticipated Discharge Date: 06/04/19 Discharge Date: 06/04/2019 Expected LOS: 1 Initial Reviewer: [email or web address] Initial Review Date: 06/03/2019 Generated: 06/04/19 10:39 am Patient Name: ARLYN ROLLE Page [phone] at 0939 All edits/amendments must be made on the electronic document DICTATION DATE: 06/04/19938 PALM AND BACK FORGER: NITO 06/04/19938 RPT#: [id number] DC DATE:06/04/19 STATUS: DIS IN [facility] [address] [facility] [place] [address] END OF REPORT
== END 2019-06-04 02:29 | DRG 871 ==
LOC: D.ER 16:51 → D.ICU 20:45
PROVIDERS: Family Medicine; ADMIT Internal Medicine Nephrology; ATTEND Internal Medicine Nephrology
PROC: 5A1935Z Respiratory Ventilation, Less than 24 Consecutive Hours (ICD-10-PCS; principal; 2019-06-03)
DX: A41.9 Sepsis, unspecified organism (principal); R65.21 Severe sepsis with septic shock; N18.6 End stage renal disease; K42.1 Umbilical hernia with gangrene; J96.02 Acute respiratory failure with hypercapnia; J96.01 Acute respiratory failure with hypoxia; I13.2 Hypertensive heart and chronic kidney disease with heart failure and with stage 5 chronic kidney disease, or end stage renal disease; E11.22 Type 2 diabetes mellitus with diabetic chronic kidney disease; I50.9 Heart failure, unspecified; I49.01 Ventricular fibrillation; E86.1 Hypovolemia; E11.649 Type 2 diabetes mellitus with hypoglycemia without coma